=== PATIENT | male | born 1960 | race Caucasian/White ===

== ENCOUNTER 2021-07-08 10:39 | Inpatient (IN) | payer BC ==
--- OUTSIDE RECORDS SUMMARY | 2021-07-08 10:42 | XMS REPORT | Continuity of Care Document ---
:1960 Author Organization [facility] t Address [address] [place] [address] Care Team Providers Name Role Phone Dianne Primary Care Physician DELVIN Attending Clinician Unavailable DELVIN Attending Clinician Unavailable DAVID Attending Clinician Unavailable KALIN CHOPRA Attending Clinician Unavailable David JENNINGS Attending Clinician DELVIN Attending Clinician Unavailable DALIA Attending Clinician Unavailable LIZ Attending Clinician Unavailable LILIANE Attending Clinician Unavailable Payers Payer Name Policy Type Policy Number Effective Date Expiration Date Rigoberto cabrera [facility] [id number] 2018 2018 00:00:00 CHOICE/CHOICE 00:00:00 PLUS BCBSTX PPO [id number] 2020 2024 00:00:00 00:00:00 Problems Condition Condition Condition Status Onset Resolution Last Treating Co mments Source Name Details Category Date Date Treatment Clinician Date History of History of Problem Resolve [place] Diabetes Diabetes d Physic i mellitus, mellitus, ans type 2 type 2 History of History of Problem Resolve UT malignant malignant d Phys ici neoplasm neoplasm ans of bladder of bladder UTI UTI Problem Active UT symptoms symptoms Physic i ans UTI UTI Problem Active UT (urinary (urinary Physic i tract tract ans infection) infection) Pre-op Pre-op Problem Active UT testing testing Physici ans Bladder Bladder Problem Active [facility] cancer cancer Physici ans Postoperat Postoperat Problem Active U T patrick visit patrick visit Phys ici ans Pancreatic Pancreatic Problem Active U T mass mass Physici ans Allergies, Adverse Reactions, Alerts This patient has no known allergies or adverse reactions. Social History Social Habit Start Date Stop Date Quantity Comments Source Sex Assigned At [birth year] [facility] 00:00:00 00:00:00 Smoking Status Start Date Stop Date Source Tobacco smoking consumption unknown [facility] Medications Ordered Filled Start Stop Current Ordering Indication Dosage Frequency Signature Comments Components Source Medication Medication Date Date Medication? Clinician (SIG) Name Name metFORMIN metFORMIN 2016-02 Yes [facility] HCl ER 500 HCl ER 500 0-31 Phy sici MG Oral MG Oral 00:00: ans Tablet Tablet 00 Extended Extended Release 24 Release 24 Hour Hour traZODone traZODone 2016-02 Yes UT HCl - 300 HCl - 300 0-31 Physi ci MG Oral MG Oral 00:00: ans Tablet Tablet 00 Melatonin 3 Melatonin 3 2016-02 Yes UT MG Oral MG Oral 0-31 Physici Tablet Tablet 00:00: ans 00 Vital Signs Vital Name Observation Time Observation Value Comments Source Body height 2021-01-21 17:38:33 180.3 cm [facility] weight 2021-01-21 17:38:33 99.7 kg [facility] BMI 2021-01-21 17:38:33 30.67 kg/m2 [facility] Body height 2020-11-26 16:21:31 180.3 cm [facility] weight 2020-11-26 16:21:31 102.6 kg [facility] BMI 2020-11-26 16:21:31 31.56 kg/m2 [facility] Body height 2020-07-09 17:22:07 180.3 cm [facility] Body weight 2020-07-09 17:22:07 102.3 kg [facility] BMI 2020-07-09 17:22:07 31.47 kg/m2 [facility] BP Systolic 2018-03-16 13:50:00 136 mm[Hg] Location: [facility]; [facility] Position: Sitting BP Diastolic 2018-03-16 13:50:00 88 mm[Hg] Location: [place]; [facility] Position: Sitting Height 2018-03-16 13:50:00 71 [in_us] [facility] Weight 2018-03-16 13:50:00 232 [lb_av] [facility] Body Mass Index 2018-03-16 13:50:00 32.36 kg/m2 [facility] Calculated Temperature 2018-03-16 13:50:00 98.6 [degF] Method: [facility] Temporal Heart Rate 2018-03-16 13:50:00 90 /min [facility] BP Systolic 2018-01-19 13:33:00 159 mm[Hg] Location: [facility]; [facility] Position: Sitting BP Diastolic 2018-01-19 13:33:00 94 mm[Hg] Location: [facility]; [facility] Position: Sitting Height 2018-01-19 13:33:00 71 [in_us] [facility] Weight 2018-01-19 13:33:00 242 [lb_av] [facility] Body Mass Index 2018-01-19 13:33:00 33.75 kg/m2 [facility] Calculated Temperature 2018-01-19 13:33:00 98.1 [degF] Method: [facility] Temporal Heart Rate 2018-01-19 13:33:00 81 /min [facility] BP Systolic 2017-09-15 14:08:00 150 mm[Hg] Location: [facility]; [facility] Position: Sitting BP Diastolic 2017-09-15 14:08:00 93 mm[Hg] Location: [facility]; [facility] Position: Sitting Height 2017-09-15 14:08:00 71 [in_us] [facility] Weight 2017-09-15 14:08:00 250 [lb_av] [facility] Body Mass Index 2017-09-15 14:08:00 34.87 kg/m2 [facility] Calculated Temperature 2017-09-15 14:08:00 98.8 [degF] Method: [facility] Temporal Heart Rate 2017-09-15 14:08:00 75 /min [facility] BP Systolic 2017-05-12 10:06:00 153 mm[Hg] Location: [facility]; [facility] Position: Sitting BP Diastolic 2017-05-12 10:06:00 99 mm[Hg] Location: [facility]; [facility] Position: Sitting Height 2017-05-12 10:06:00 71 [in_us] [facility] Weight 2017-05-12 10:06:00 245 [lb_av] [facility] Body Mass Index 2017-05-12 10:06:00 34.17 kg/m2 [facility] Calculated Temperature 2017-05-12 10:06:00 97.8 [degF] Method: [facility] Temporal Heart Rate 2017-05-12 10:06:00 76 /min [facility] BP Systolic 2017-01-20 09:24:00 138 mm[Hg] Position: [facility] Sitting BP Diastolic 2017-01-20 09:24:00 90 mm[Hg] Position: [facility] Sitting Height 2017-01-20 09:24:00 71 [in_us] [facility] Weight 2017-01-20 09:24:00 245 [lb_av] [facility] Body Mass Index 2017-01-20 09:24:00 34.17 kg/m2 [facility] Calculated Temperature 2017-01-20 09:24:00 97.5 [degF] Method: Oral [facility] Heart Rate 2017-01-20 09:24:00 104 /min [facility] Procedures Procedure Date / Time Performed Performing Clinician [facility] e CT ABDOMEN PELVIS W CONTRAST 2020-10-01 16:04:55 [facility]vin[facility] CHEST W CONTRAST 2020-10-01 16:04:44 [facility] 2018-03-16 00:00:00 [facility] contrast [id number] [[facility]] CULTURE, URINE, 2018-02-19 00:00:00 [facility] ROUTINE [Q] BLADDER CANCER, FISH 2018-01-19 00:00:00 [facility] [Q] CYTOLOGY, NON-PROGRAM MANAGEMENT ANALYST 2017-05-12 00:00:00 [facility] History of Vasectomy [facility] Encounters Start End Encounter Admission Attending Care Care Encounter Source Date/Time Date/Time Type Type Clinicians Facility Department ID 2021-06-25 Outpatient [facility] [id number] [place] 10:17:53 [id number] [facility] 2021-06-24 Outpatient [facility] [id number] [place] 11:54:33 [id number] [facility] 2021-06-17 Outpatient DELVIN, PUTAO [facility] [id number] [place] 01:03:23 [id number] [facility] 2021-06-11 Outpatient [facility] [id number] [place] 07:00:32 [id number] [facility] 2021-05-13 Outpatient [facility] [id number] [place] 10:04:29 [id number] [facility] 2020-10-05 Outpatient DELVIN, PUTAO [facility] [id number] [place] 01:05:36 [facility] 2019-09-22 Outpatient DELVIN, P[facility]AO [facility] [id number] [facility] 10:45:51 2021-05-30 2021-06-28 Outpatient LAVENRBAUGH, [facility] [id number] [facility] 13:11:00 23:59:00 CASSIDY 2021-06-27 2021-06-27 Outpatient KEYSHA, [facility] [id number] [facility] 09:10:00 09:10:00 MARIAJOSE 2021-05-15 2021-06-13 Outpatient DELVIN, PUTAO [facility] [id number] [facility] 10:15:00 23:59:00 2021-05-21 2021-05-21 Telephone David, UTP 6400 [id number] [place] 00:00:00 00:00:00 Cassidy LAURA [id number] Health [id number] 2021-03-18 2021-04-16 Outpatient DELVIN, P[facility]AO [facility] [id number] [facility] 10:24:00 23:59:00 2021-04-10 2021-04-10 Outpatient DELVIN, PUTAO [facility] [id number] [facility] 07:58:00 17:45:00 2021-01-21 2021-02-15 Outpatient DELVIN, PUTAO [facility] [id number] [facility] 11:26:00 18:00:00 2021-01-18 2021-01-18 EXT MHH OP Delvin, Putao EXT MSRDP [id number] [place] 00:00:00 00:00:00 LOCATION [id number] H ealth [id number] [id number] 2020-11-26 2020-11-26 Outpatient DELVIN, PUTAO [facility] [id number] [facility] 10:57:00 10:57:00 2020-11-23 2020-11-23 EXT MHH OP Delvin, Putao EXT MSRDP [id number] [place] 00:00:00 00:00:00 LOCATION [id number] H ealth [id number] [id number] 2020-10-01 2020-10-30 Outpatient DELVIN, PUTAO [facility] [id number] [facility] 11:23:00 23:59:00 2020-09-28 2020-09-28 EXT MHH OP EXT MSRDP [id number] [place] 00:00:00 00:00:00 LOCATION [id number] H ealth [id number] [id number] 2020-07-09 2020-08-07 Outpatient DELVIN, PUTAO [facility] [id number] [facility] 12:05:00 23:59:00 2020-07-09 2020-07-09 EXT MHH OP Delvin, Putao EXT MSRDP [id number] [place] 00:00:00 00:00:00 LOCATION [id number] H ealth [id number] [id number] 2020-04-16 2020-05-15 Outpatient DELVIN, PUTAO [facility] [id number] [facility] 11:53:00 23:59:00 2020-01-17 2020-02-15 Outpatient DELVIN, PUTAO [facility] [id number] [facility] 10:36:00 23:59:00 2019-07-06 2019-07-06 Outpatient DELVIN, P[facility]AO [facility] [id number] [facility] 10:36:00 10:36:00 2019-06-08 2019-06-08 AppointMIRANDA Silver UTP UTP [id number] [place] 10:45:00 10:45:00 t; Amber HARGROVE i, ans M.D. 2019-04-14 2019-04-14 Outpatient MIRANDA HARGROVE [facility] MHH [id number] [facility] 10:29:00 10:29:00 2019-02-17 2019-02-17 Appointmen DELVIN PUTRADHA, UTP UTP [id number] [place] 11:00:00 11:00:00 t; Amber HARGROVE Physic i kian JEAN M.D. 2019-02-17 2019-02-17 Outpatient MHH [facility] [id number] [facility] 09:20:00 09:20:00 2019-02-03 2019-02-03 Outpatient M[facility]H [facility] [id number] [facility] 09:58:00 09:58:00 2019-01-20 2019-01-20 Appointmen DELVIN PUTRADHA, UTP UTP [id number] [place] 11:30:00 11:30:00 t; Amber HARGROVE i kian JEAN M.D. 2019-01-06 2019-01-06 Appointmen DELVIN PUTRADHA, UTP UTP [id number] [place] 09:20:00 09:20:00 t; Amber HARGROVE Physic i PUTkian GARCIA M.D. 2018-12-23 2018-12-23 Appointmen DELVIN PUTRADHA, UTP UTP [id number] [place] 10:30:00 10:30:00 t; Amber HARGROVE i kian JEAN M.D. 2018-12-23 2018-12-23 Outpatient MH ISABELA [id number] [facility] 09:50:00 09:50:00 2018-12-09 2018-12-09 Appointmen DELVIN PUTAO, UTP UTP [id number] [place] 10:45:00 10:45:00 t; Amber HARGROVE Physic i PUTkian GARCIA M.D. 2018-12-02 2018-12-02 Appointmen DELVIN PUTAO, UTP UTP [id number] [place] 11:00:00 11:00:00 t; Amber HARGROVE Physic i PUTkian GARCIA M.D. 2018-11-11 2018-11-11 Appointmen DELVIN PUTRADHA, UTP UTP [id number] [place] 12:30:00 12:30:00 t; Amber HARGROVE Physic i PUTkian GARCIA M.D. 2018-11-11 2018-11-11 Outpatient [facility] [id number] [facility] 10:13:00 10:13:00 2018-09-30 2018-09-30 Outpatient [facility] [id number] [facility] 10:29:00 10:29:00 2018-09-30 2018-09-30 Appointmen DELVIN PUTRADHA, UTP UTP [id number] [place] 09:00:00 09:00:00 t; Amber HARGROVE i, ans M.D. 2018-09-17 2018-09-17 Appointmen DALIA, UTP UTP [id number] [place] 07:30:00 07:30:00 t; MICHELLE GÓMEZ Physi ci CURTIS, M.D. ans M.D. 2018-09-17 2018-09-17 Inpatient U [facility] ISABELA [id number] [facility] 14:53:00 05:39:00 2018-08-26 2018-08-26 Appointmen DELVIN PUTRADHA, UTP UTP [id number] [place] 11:00:00 11:00:00 t; Amber HARGROVE i, ans M.D. 2018-08-23 2018-08-23 Appointmen DELVIN, PUTAO, UTP UTP [id number] [place] 11:45:00 11:45:00 t; Amber HARGROVE i, ans M.D. 2018-08-12 2018-08-12 Appointmen DELVIN PUTRADHA, UTP UTP [id number] [place] 11:30:00 11:30:00 t; Amber HARGROVE i, ans M.D. 2018-08-12 2018-08-12 Outpatient [facility] [id number] [facility] 08:56:00 08:56:00 2018-08-05 2018-08-05 Appointmen DELVIN, PUTAO, UTP UTP [id number] [place] 11:00:00 11:00:00 t; Amber HARGROVE i, ans M.D. 2018-07-29 2018-07-29 Appointmen DELVIN PUTAO, UTP UTP [id number] [place] 13:00:00 13:00:00 t; Amber HARGROVE i, ans M.D. 2018-07-15 2018-07-15 Appointmen DELVIN, PUTAO, UTP UTP [id number] [place] 09:45:00 09:45:00 t; Amber HARGROVE Physic i PUTkian GARCIA M.D. 2018-07-08 2018-07-08 Appointmen DELVIN, PUTAO, UTP UTP [id number] [place] 09:45:00 09:45:00 t; Amber HARGROVE Physic i PUTkian GARCIA M.D. 2018-07-08 2018-07-08 Outpatient [facility] [id number] [facility] 09:16:00 09:16:00 2018-07-01 2018-07-01 Appointmen DELVIN, PUTAO, UTP UTP [id number] [place] 11:00:00 11:00:00 t; Amber HARGROVE Physic i PUTkian GARCIA M.D. 2018-06-24 2018-06-24 Appointmen DELVIN, PUTAO, UTP UTP [id number] [place] 11:00:00 11:00:00 t; Amber HARGROVE Physic i PUTkian GARCIA M.D. 2018-06-17 2018-06-17 Appointmen DELVIN, PUTAO, UTP UTP [id number] [place] 10:30:00 10:30:00 t; Amber HARGROVE Physic i PUTkian GARCIA M.D. 2018-06-10 2018-06-10 Appointmen DELVIN, PUTAO, UTP UTP [id number] [place] 14:45:00 14:45:00 t; Amber HARGROVE Physic i PUTkian GARCIA M.D. 2018-06-03 2018-06-03 Appointmen DELVIN, PUTAO, UTP UTP [id number] [place] 11:00:00 11:00:00 t; Amber HARGROVE Physic i PUTkian GARCIA M.D. 2018-06-03 2018-06-03 Outpatient [facility] [id number] [facility] 08:37:00 08:37:00 2018-05-20 2018-05-20 Appointmen DELVIN, PUTAO, UTP UTP [id number] [place] 14:00:00 14:00:00 t; Amber HARGROVE Physic i PUTkian GARCIA M.D. 2018-05-06 2018-05-06 Appointmen DELVIN, PUTAO, UTP UTP [id number] [place] 10:00:00 10:00:00 t; Amber HARGROVE Physic i PUTkian GARCIA M.D. 2018-04-29 2018-04-29 Appointmen MIRANDA HARGROVE, [facility] [id number] [place] 11:00:00 11:00:00 t; Amber HARGROVE Physic i PUTAOkian M.D. 2018-04-29 2018-04-29 Appointmen MHH, GASTRO [facility] [id number] [place] 08:00:00 08:00:00 t; MHH, Physic i GASTRO ans 2018-03-16 2018-03-[facility] [id number] [place] 14:00:00 14:00:00 t; Kaitlin COHN M.D. ans STEVEN, M.D. 2018-02-24 2018-02-24 [facility] [id number] [place] 09:00:00 09:00:00 t; Skyler COHN i, M.D. ans STEVEN, M.D. 2018-01-19 2018-01-19 [facility] [id number] [place] 13:00:00 13:00:00 t; Kaitlin COHN M.D. ans STEVEN, M.D. 2017-09-15 2017-09-15 [facility] [id number] [place] 14:00:00 14:00:00 t; Kaitlin COHN M.D. ans STEVEN, M.D. 2017-08-11 2017-08-11 [facility] [id number] [place] 10:00:00 10:00:00 t; Skyler COHN i, M.D. ans STEVEN, M.D. 2017-05-12 2017-05-12 [facility] [id number] [place] 10:00:00 10:00:00 t; Kaitlin COHN M.D. ans STEVEN, M.D. 2017-01-20 2017-01-20 [facility] [id number] [place] 09:15:00 09:15:00 t; LALIT, Amber Flores i, M.D. 2016-12-16 2016-12-16 Appointmen OWEN MOMIN UTP [id number] [place] 13:00:00 13:00:00 Skyler Elizabeth i, M.D. ans STEVEN, M.D. Results Test Test Test Results Result Source Description Time Comments Comments CT 2019-05 EXAM: CT ABDOMEN AND PELVIS [place] Abdomen/Pelvis -13 WITH CONTRASTDATE: 05/30/2019 Physicians w contrast 11:30:0 11:32 AM CDTINDICATION: - [id number] C25.2 Malignant neoplasm of tail of pancreasADDITIONAL INFORMATION: None.COMPARISON: History of bladder cancer. Pancreatic tail adenocarcinoma, statuspost distal pancreatectomy and splenectomy in 2019.TECHNIQUE: Volumetric CT acquisition of the abdomen and pelvis after theintravenous administration contrast. Axial, coronal and sagittalreconstructions.Postco ntrast phases: Venous.IV contrast: 100 cc of Omnipaque 350Oral contrast: None.DLP: 1550.6 mGy*cmFINDINGS: Lines and tubes: None.Lower thorax: No pleural effusions. No pericardial effusion. No obvious lungnodules at the bases.Liver: Normal. Stable hepatic segment 7 subcentimeter hypodensity.Biliary tree: No intra- or extrahepatic biliary ductal dilation.Gallbladder: Gallbladder is unremarkable.Pancreas: Status post distal pancreatectomy with expected postsurgical changes.No obvious recurrent soft tissue in the surgical bed.Spleen: Status post splenectomy.Adrenals: Normal. No adrenal nodules.Kidneys and ureters: Normal. No obvious focal lesions. No nephrolithiasis. Nohydronephrosis. No ureteral dilations. Both kidneys are normally enhancing withprompt excretion.Urinary bladder: Urinary bladder is mildly distended with diffuse wallthickening. Given the inadequate distention, evaluation is limited.Prostate and seminal vesicles: Prostate and seminal vesicles are unremarkable.Stomach: Stomach is well distended. There is small hiatal hernia.Duodenum: Duodenum is unremarkable without wall thickening. No duodenaldiverticula seen.Small bowel: No small bowel dilation. No small bowel wall thickening. Terminalileum is visualized and is unremarkable.Appendix: Normal appendix.Colon: Diverticulosis of left colon without diverticulitis.Peritoneum: No ascites or free air. No fluid collections.Lymph nodes: No enlarged retroperitoneal or pelvic or mesenteric lymph nodes byCT size criteria.Abdominal aorta: Abdominal aorta is patent without aneurysmal dilation.Iliac arteries: Iliac arteries are patent without dilation.IVC and iliac veins: IVC and iliac veins are patent.Bones: No suspicious lytic or blastic lesions seen in the bones.Abdominal wall: No obvious ventral hernias.Soft tissues: No obvious focal masses or fluid collections.IMPRESSION: 1. Status post distal pancreectomy and splenectomy. No recurrent soft tissuemass in the surgical bed.2. No metastatic disease in the abdomen and pelvis otherwise.3. Diffuse mild bladder wall thickening given for inadequate distention.RECOMMENDATIONS: None.--Read by: Will PlummerDictated Date/time: 05/30/19 12:04Electronically Signed by: Will Plummer 05/30/2011:14FINAL REPORT CT Chest w 2019-02 EXAM: [place] contrast [id number] CONTRASTDATE: 03/04/2019 11:14 Physicians 11:45:0 CSTINDICATION: 59-year-old man 0 with pancreatic cancerTECHNIQUE: Volumetric CT acquisition of the chest, following intravenouscontrast. Axial, sagittal and coronal reconstructions. MIP images wereperformed.IV Contrast: 100 mL of Omnipaque 350.DLP: 1733 mGy-cmCOMPARISON: CT chest from 10/09/2016FINDINGS: Lower Neck: The visible portions or the lower neck and thyroid areunremarkable.Heart, mediastinum and great Vessels: Right Port-A-Cath in the SVC. Heart sizeis normal and there is no pericardial effusion. Measurements the pulmonarytrunk and thoracic aorta within normal limits. Aortic root, thoracic aortic andthree-vessel coronary artery calcifications. No intrathoracic lymphadenopathyby pathologic CT size criteria.Trachea, Lungs and Pleura: Trachea and central bronchi are patent. Nopathologic pulmonary nodules or acute airspace disease. Calcified granulomaright middle lobe. Right middle lobe and lingular subsegmental atelectasis. Nopleural effusion or pneumothorax.Bones and Soft Tissues: Mild thoracic spine spondylosis. No aggressive skeletallesions.Upper abdomen: Please refer to CT abdomen from the same day for dedicatedinfradiaphragmatic findings.IMPRESSION:1. No definite CT evidence of intrathoracic metastatic disease.2. Aortic root, thoracic aortic and three-vessel coronary arterycalcifications.3. Please refer to CT abdomen from the same day for dedicatedinfradiaphragmatic findings.--Read by: José Manuel Solomon MDDictated Date/time: 03/04/19 12:56Electronically Signed by: José Manuel Solomon 03/04/2012:47FINAL REPORT CT 2019-02 EXAM: CT ABDOMEN AND PELVIS [place] Abdomen/Pelvis -17 WITH CONTRASTDATE: 03/04/2019 Physicians w contrast 11:45:0 11:14 CSTINDICATION: - C25.2 [id number] Malignant neoplasm of tail of pancreasADDITIONAL INFORMATION: History of bladder cancer.. Status post distalpancreatectomy and splenectomy 2018.COMPARISON: 11/10/2018 and 10/14/2018.TECHNIQUE: Volumetric CT acquisition of the abdomen and pelvis after theintravenous administration contrast. Axial, coronal and sagittalreconstructions.Postco ntrast phases: VenousIV contrast: 100 mL Omnipaque 350Enteric contrast: 4 50 mL VolumenDLP: 1733.63 mGy-cm including chestFINDINGS: Lines, tubes and hardware: None. Previously seen left upper quadrant drain isremoved.Lower thorax: For details of the lower thorax, please refer to CT scan of thechest performed the same day but reported separately.Liver: Small enhancing focus is seen in segment 8 of the liver (series 5 image18) measuring approximately 7 mm. This is been seen on the prior exams andlikely represents a small hemangioma or arterial portal shunt. No other focalliver lesion is seen.Biliary tree: No biliary dilatation is seen.Gallbladder: Normal. No CT evidence of gallstones.Pancreas: Patient status post a distal pancreatectomy. The previously seenfluid collection at the surgical site is resolved. There is linear densitiesseen surrounding sutures or calcifications but no definite soft tissue nodule.Linear densities demonstrates some tethering towards the stomach.Spleen: Surgically absent. The previously seen fluid collection within thesplenectomy bed is resolved. Some ill-defined fluid or soft tissue stranding isseen in the left upper quadrant along the diaphragm, likely postsurgicalchanges.Adrenals: Normal.Kidneys and ureters: Normal.Bladder: Normal.Reproductive organs: Prostate and seminal vesicles are unremarkable.Gastrointestinal tract: Normal caliber. Diverticulosis without diverticulitis.Appendix: Normal.Peritoneum, mesentery and retroperitoneum: No free air, ascites or loculatedfluid.Lymph nodes: A node is seen anterior to the common hepatic artery (series 5image 26) which is stable from prior. A few other subcentimeter lymph nodes areseen in the peripancreatic region and isauro hepatis as well as the midabdominal mesentery.Vasculature: Normal.Bones: No acute abnormality. Unchanged sclerosis of the femoral heads.Soft tissues: Normal.IMPRESSION: 1. Interval resolution of the fluid collection within the surgical bed aroundthe pancreatic tail. There is some linear soft tissue density extending to thesurrounding structures not to represent scarring. No focal nodule is seen atthis time to suggest recurrent disease.2. Fluid collection in the splenectomy bed is also resolved. Some mildill-defined soft tissue stranding/fluid seen in the left upper quadrant.3. Unchanged small focus of arterial enhancement in the liver thought torepresent a small hemangioma or arterial portal shunt.4. No detrimental interval change noted.--Read by: Jossy Fajardo MDDictated Date/time: 03/04/19 15:22Electronically Signed by: Jossy Fajardo MD 03/07/2022:32FINAL REPORT CT 2018-03 Study: Abdomen/Pelvis w/wo IV [place] Abdomen/Pelvis -22 contrast CTClinical P hysicians w/wo contrast 10:50:0 Indication: - bladder [id number] cancerComparison: CT of the abdomen and pelvis from 10/09/2016TECHNIQUE: Multiple axial CT images of the abdomen and pelvis were acquiredbefore and after the administration of intravenous contrast. Sagittal andcoronal reformatted images were performed.CT Radiation Dose DLP 1842.22 mGy-cmFINDINGS: Limited views of the lung bases show a calcified granuloma in theright middle lobe.Multiple calcified hepatic and splenic granulomas are seen. Gallbladder,adrenal glands, and kidneys are unremarkable. No hydronephrosis or perinephricstranding is seen. No renal or ureteral stones are noted. No filling defectsare noted throughout the opacified portions of the renal collecting systems,ureters, or bladder on the delayed excretory phase images. Previously notedintraluminal mass in the urinary bladder is no longer seen on the current exam.Mild wall thickening of the urinary bladder is seen. Prostate is unremarkable.There is a lobulated, heterogeneously enhancing 3.1 x 3.6 x 2.6 cm mass in thepancreatic tail. This is new since prior exam from 10/09/2016. No splenic veinthrombosis is seen. No splenic arterial aneurysm is noted. There is nopancreatic ductal dilatation. No intrahepatic or extrahepatic biliary ductdilatation is seen. Multiple colonic diverticula are seen without inflammatory change to suggestacute diverticulitis. Appendix is unremarkable. No free air, free fluid, orpathologic adenopathy is seen. Arterial calcifications are noted. Thesuperficial soft tissues are unremarkable. No suspicious osseous lesions areseen.IMPRESSION:1. Mild wall thickening of the urinary bladder, nonspecific. Previously notedintraluminal mass within the urinary bladder has resolved since prior exam from10/09/2016.2. No focal renal lesion.3. Interval development of a lobulated 3.1 x 3.6 x 2.6 cm mass in thepancreatic tail. This is highly suspicious for malignancy.SL: [id number] by: Willie Searsictated Date/time: 04/09/18 13:38Electronically Signed by: Willie Sears MD 04/09/1912:47FINAL REPORT [Q] CYTOLOGY, NON-PROGRAM MANAGEMENT ANALYST 2017-09-16 11:00:00 Test Item Value Reference Range Interpretation Comme nts CLINICAL INFORMATION (test code = See Comment N Bladder cancer CLINICAL INFORMATION) SCREENER (test code = SCREENER) See Comment N PMT, CT(ASCP)CT screening location: [address], [place] [id number] PATHOLOGIST (test code = See Comment N Kirk Conte MD,Board PATHOLOGIST) Certified in An atomic [id number] [phone] (electronic sig nature) [facility][Q] NON-PROGRAM MANAGEMENT ANALYST, SPECIMEN [id number] 11:00:00 Test Item Value Reference Range Interpretation Comments Source (test code = See Comment N Urine Source) Gross Description See Comment 50 ml of c lear yellow (test code = Gross fluid, 1 ThinPrep. Description) Verified as to patient ID/name Tomasz ss exam(s) perform ed at: [place] [phone] Laboratory Dire ctor: PATRICIA ROBERT MD A DIAGNOSIS (test See Comment Atypical u rothelial code = A DIAGNOSIS) cells ar e present (see microscopic description). MICROSCOPIC DESCRIPTION:One ThinPrep is exa mined. This slide show s some atypical urothe lial cells, mainly occurring in sm all clusters. The c ells show a somewhat increased N:C r atio, and hyperchroma tic nuclei. However , little nuclear pleomorphism is observed. NO COLLECTION DATE RECEIVED. WE CAMACHO VE USEDTHE DATE E SPECIMEN WAS RE CEIVED BY FELIBERTO KENNEDY THE COLLECTION DATE. IF THISIS INCOR RECT, PLEASE CONTACT CLIENT SERVICES.PHONE NUMBER: [phone] [facility]
[2021-07-08] MEDS ORDERED: NA CHLORIDE 0.9% 1,000 ML ONE (11:07)
[2021-07-08] MEDS ORDERED: ONDANSETRON 4 MG/2 ML VIAL ONE (11:07)
[2021-07-08] MEDS ORDERED: DICYCLOMINE HCL 20 MG/2 ML AMP IM ONE (11:20)
[2021-07-08 11:35] LABS: Hematocrit 37.4 % (39.6-49.0); MPV 9.4 fL (7.6-11.3); RBC Red Blood Cell Count 4.47 M/uL (4.33-5.43)
[2021-07-08 11:36] LABS: Albumin 2.1 g/dL (3.4-5.0); Bilirubin Total 1.2 mg/dL (0.2-1.0); Potassium 3.2 mmol/L (3.5-5.1); Protein, Total 6.3 g/dL (6.4-8.2)
[2021-07-08 12:29] LABS: Urine Blood 2+ (Negative); Urine Glucose 2+ (Negative); Urine Protein 2+ (Negative); Urine pH 5.5 (5.0-7.0)
--- NOTE | 2021-07-08 12:45 | RAD REPORT ---
EXAM DESCRIPTION: CT - Abdomen Pelvis Wo Contrast - 07/08/2021 12:30 pm CLINICAL HISTORY: Abdominal pain, acute, nonlocalized History of lung and pancreatic malignancies, history of radiation therapy COMPARISON: No comparisons TECHNIQUE: Axial [address] imaging of the abdomen and pelvis was performed without IV contrast. No IV contrast was given because of allergy, abnormal renal function, patient refusal or physician re quest. No oral contrast administered. All CT scans are performed using dose optimization technique as appropriate and may include automated exposure control or mA/KV adjustment according to patient size. FINDINGS: Patchy airspace opacification is present in the posterior gutter on the right. This appear ance is favored to be a small focal pneumonia. In the lateral lower right lung field (image 6/112) th ere is a 12 millimeter noncalcified nodule. This is nonspecific. Focal scarring is possible. Infiltra te is not suspected. Neoplastic etiology cannot be excluded given history. No prior imaging of compar miley. Fleischner Society 2017 criteria would recommend follow-up CT study in 3 months. However, lung castellanos are only partially visualized. Patient may have additional nodules, a larger nodule or a remna nt primary mass. No focal abnormality seen in a normal size liver on noncontrast imaging. No gallbladder or biliary tr ee abnormality seen. Pancreatic tail and portions of the pancreatic body have been resected. Spleen h as been resected. No suspicion for recurrent mass. No hydronephrosis or suspicious renal mass. No significant adrenal finding. Isodense renal masses an d pyelonephritis cannot be excluded in the absence of IV contrast. The urinary bladder is without sig nificant finding. No gastric dilatation or wall thickening. No acute small bowel finding identifiable. The appendix is normal. Patient cecum is in the right mid abdomen with the retrocecal appendix extending superiorly t owards the gallbladder fossa. Cecum to mid descending colon shows no acute finding. There is a long 1 5 centimeter segment of distal descending colon to the mid sigmoid colon showing circumferential wall thickening. There is stranding in the adjacent fat. Patient has a few diverticula. Diverticulitis wo uld be most likely. Nonspecific colitis is possible. Long segment malignancy is not common but not en tirely excluded. Newsome of the distal rectum near the anus are prominent though CT imaging is limited in accuracy of assessment at that location. No free air, free fluid or inflammatory stranding. No hernia, mass or bulky lymphadenopathy. No suspicious bony findings. IMPRESSION: Long segment circumferential wall thickening involving the distal descending colon to th e mid sigmoid colon approximately 15 cm. Stranding is seen in the adjacent fat. No extraluminal air, abscess or other complicating factor. Diverticulitis is the most likely etiology. Patient has diverticulosis. Malignancy is generally not o f this length but is not entirely excluded. Patchy airspace opacification in the posterior gutter on the right possibly a small pneumonia. A 12 mm lateral lower right lung field nodule is present. Provided history indicates a lung cancer hi story. Correlation can be made with prior outside imaging to determine this is stable or new nodule. Splenectomy and partial pancreatectomy with no evidence for residual or recurrent mass. Full assessment is limited is the absence of IV contrast.
[2021-07-08] MEDS ORDERED: PIPERACIL/TAZO 3.375 GM VIAL IV ONE (14:07)
[2021-07-08] MEDS ORDERED: NA CHLORIDE 0.9% 100 ML IV ONE (14:07)
[2021-07-08] MEDS ORDERED: METRONIDAZOLE 500mg IVPB 500 MG/100 ML BAG IV ONE (14:08)
--- NOTE | 2021-07-08 14:12 | EDPHYS ---
Physician Documentation [facility] Name: Austen Patterson Age: 61 yrs Sex: Male : 1960 Arrival Date: 07/08/2021 Time: 10:40 Bed 20 Private MD: Kaiden Dean ED Physician Dominick Earl HPI: 07/08 10:54 This 61 yrs old Male presents to ER via Wheelchair with complaints of dehydration, jmm Diarrhea. 10:54 The patient presents to the emergency department with nausea, diarrhea. Onset: The jmm symptoms/episode began/occurred gradually, 1 week(s) ago. Possible causes: unknown. The symptoms are aggravated by nothing. The symptoms are alleviated by nothing. Associated signs and symptoms: Pertinent negatives: abdominal pain, fever. The patient has not experienced similar symptoms in the past. Historical: - Allergies: 10:44 No Known Allergies; jd3 - PMHx: 10:44 Diabetes - NIDDM; Hypertension; lung cancer; tramatic brain injury; pancriatic cancer; jd3 - PSHx: 10:44 pancriatic surgery; jd3 - Immunization history:: Adult Immunizations up to date, Client reports receiving the 2nd dose of the Covid vaccine. - Social history:: Smoking status: Reported history of juuling and/or vaping. ROS: 10:54 Constitutional: Positive for body aches, fatigue. jmm 10:54 Respiratory: Positive for Negative for cough, shortness of breath. 10:54 Abdomen/GI: Positive for diarrhea. 10:54 All other systems are negative. Exam: 10:54 Constitutional: This is a well developed, well nourished patient who is awake, alert, jmm and in no acute distress. Head/Face: atraumatic. Eyes: EOMI, no conjunctival erythema appreciated ENT: Moist Mucus Membranes Neck: Trachea midline, Supple Chest/axilla: Normal chest wall appearance and motion. Cardiovascular: Regular rate and rhythm. No edema appreciated Respiratory: Normal respirations, no respiratory distress appreciated Abdomen/GI: Non distended, soft Back: Normal ROM Skin: General appearance color normal MS/ Extremity: Moves all extremities, no obvious deformities appreciated, no edema noted to the lower extremities Neuro: Awake and alert Psych: Behavior is normal, Mood is normal, Patient is cooperative and pleasant Vital Signs: 10:45 BP 117 / 75; Pulse 111; Resp 18 S; Temp 99.5(TE); Pulse Ox 98% on R/A; Weight 90.72 kg jd3 (R); Height 5 ft. 10 in. (177.80 cm) (R); Pain 8/10; 12:39 BP 146 / 92; Pulse 97; Pulse Ox 95% on R/A; ap3 13:11 BP 131 / 79; Pulse 93; Pulse Ox 98% on R/A; ap3 14:26 BP 132 / 91; Pulse 95; Pulse Ox 99% on R/A; ap3 15:25 BP 152 / 91; Pulse 98; Pulse Ox 98% ; ap3 16:30 BP 114 / 69; Pulse 98; Pulse Ox 97% on R/A; ap3 17:30 BP 141 / 86; Pulse 113; Pulse Ox 99% on R/A; ap3 18:16 BP 117 / 77; Pulse 89; Pulse Ox 98% on R/A; ap3 18:47 BP 113 / 85; Pulse 101; Pulse Ox 97% on R/A; ap3 10:45 Body Mass Index 28.70 (90.72 kg, 177.80 cm) jd3 MDM: 10:54 Patient medically screened. [facility] 14:10 Data reviewed: vital signs, nurses notes. Counseling: I had a detailed discussion with alfredo the patient and/or guardian regarding: the historical points, exam findings, and any diagnostic results supporting the discharge/admit diagnosis, lab results, the need for further work-up and treatment in the hospital. ED course: I discussed the patient with Dr. Parada whom accepted the patient to his service. 07/08 10:57 Order name: CBC with Diff [facility] 07/08 10:57 Order name: CMP; Complete Time: 11:50 [facility] 07/08 10:57 Order name: Lipase; Complete Time: 11:50 [facility] 07/08 12:05 Order name: Manual Differential [facility] 07/08 12:30 Order name: Urine Dipstick-Ancillary; Complete Time: 12:34 [facility] 07/08 13:39 Order name: SARS-COV-2 RT PCR (Document "Date of Onset" if Symptomatic); Complete Time: [facility] 15:57 07/08 16:10 Order name: Basic Metabolic Panel [facility] 07/08 16:10 Order name: Basic Metabolic Panel [facility] 07/08 16:10 Order name: CBC with Automated Diff [facility] 07/08 16:10 Order name: CBC with Automated Diff [facility] 07/08 16:10 Order name: Lipase [facility] 07/08 16:10 Order name: Lipase [facility] 07/08 16:10 Order name: Liver (Hepatic) Function [facility] 07/08 16:10 Order name: Liver (Hepatic) Function [facility] 07/08 10:57 Order name: IV Saline Lock; Complete Time: 11:21 [facility] 07/08 10:57 Order name: Labs collected and sent; Complete Time: 11:21 [facility] 07/08 10:57 Order name: Urine Dipstick-Ancillary (obtain specimen); Complete Time: 12:34 [facility] 07/08 11:52 Order name: CT Abd/Pelvis - Without Contrast; Complete Time: 12:46 [facility] 07/08 13:28 Order name: EKG - Nurse/Tech; Complete Time: 14:21 [facility] 07/08 16:10 Order name: NPO [facility] Administered Medications: 11:21 Drug: NS 0.9% 1000 ml Route: IV; Rate: 1 bolus; Site: right wrist; ap3 12:34 Follow up: IV Status: Completed infusion; IV Intake: 1000ml ap3 11:21 Not Given (Patient Refused): Zofran (Ondansetron) 4 mg IVP once; over 2 minutes ap3 11:40 Drug: Bentyl (dicyclomine) 20 mg Route: IM; Site: right gluteus; ap3 14:21 Follow up: Response: No adverse reaction ap3 14:21 Drug: Flagyl (metroNIDAZOLE) 500 mg Volume: 100 ml; Route: IVPB; Rate: 200 ml/hr; ap3 Infused Over: 30 mins; Site: right wrist; 15:04 Follow up: IV Status: Completed infusion ap3 15:04 Drug: Zosyn (piperacillin-tazobactam) 3.375 grams Route: IVPB; Infused Over: 60 mins; jh6 Site: right femoral; 15:37 Follow up: IV Status: Completed infusion ap3 Disposition: 19:04 Co-signature as Attending Physician, Dominick FERNANDES was immediately available on-site ms3 in the Emergency Department for consultation in the care of the patient.. Disposition Summary: 07/08/21 14:12 Hospitalization Ordered Hospitalization Status: Observation jmm Location: Telemetry/MedSurg (observation) jmm Condition: Stable jmm Problem: new jmm Symptoms: are unchanged jmm Bed/Room Type: Standard jmm Provider: Kaiden Dean(07/08/21 14:38) jmm Room Assignment: 401(07/08/21 20:10) mw Diagnosis - Dehydration jmm - Diarrhea jmm - Hyponatremia jmm - Acute Kidney Injury jmm - Hypokalemia jmm Forms: - Medication Reconciliation Form jmm - SBAR form jmm Signatures: Dispatcher [employer] EDMS Lorri Espinoza RN RN mw Florencio Landis PA PA jmm Davies, Jonathon RN RN derickd3 Dee Dee Pascual RN RN ap3 Dominick Earl DO DO ms3 Cherelle Mcdaniel RN RN jh6 Corrections: (The following items were deleted from the chart) 14:38 14:12 Nick Paradam m 19:45 14:12 jmm mw 20:10 19:45 405 mw mw
--- NOTE | 2021-07-08 14:12 | ER ---
Nurse's Notes [facility] Name: Austen Patterson Age: 61 yrs Sex: Male : 1960 Arrival Date: 07/08/2021 Time: 10:40 Bed 20 Private MD: Kaiden Dean Diagnosis: Dehydration;Diarrhea;Hyponatremia;Acute Kidney Injury;Hypokalemia Presentation: 07/08 10:43 Chief complaint: Patient states: "I have not been able to eat or drink in about a week. jd3 I am dehydrated and feeling very weak. I had a chemo treatment about a week ago.". Coronavirus screen: At this time, the client does not indicate any symptoms associated with coronavirus-19. Ebola Screen: No symptoms or risks identified at this time. Initial Sepsis Screen: Does the patient meet any 2 criteria? No. Patient's initial sepsis screen is negative. Does the patient have a suspected source of infection? No. Patient's initial sepsis screen is negative. Risk Assessment: Do you want to hurt yourself or someone else? Patient reports no desire to harm self or others. Onset of symptoms was July 08, 2021. 10:43 Method Of Arrival: Wheelchair jd3 10:43 Acuity: JAREK 3 jd3 Historical: - Allergies: 10:44 No Known Allergies; jd3 - PMHx: 10:44 Diabetes - NIDDM; Hypertension; lung cancer; tramatic brain injury; pancriatic cancer; jd3 - PSHx: 10:44 pancriatic surgery; jd3 - Immunization history:: Adult Immunizations up to date, Client reports receiving the 2nd dose of the Covid vaccine. - Social history:: Smoking status: Reported history of juuling and/or vaping. Screenin:20 Abuse screen: Denies threats or abuse. Nutritional screening: Has had N/V for 3 or more ap3 days. Tuberculosis screening: No symptoms or risk factors identified. Fall Risk Fall in past 12 months (25 points). Secondary diagnosis (15 points) IV access (20 points). Ambulatory Aid- None/Bed Rest/Nurse Assist (0 pts). Gait- Weak (10 pts.). Mental Status- Oriented to own ability (0 pts). Total Isaacs Fall Scale indicates High Risk Score (45 or more points). Fall prevention measures have been instituted. Side Rails Up X 2 Placed Close to Nursing Station Frequent Obs/Assessments Occuring Family Present and informed to notify staff if the need to leave the bedside. Assessment: 11:19 General: Appears in no apparent distress. comfortable, Behavior is calm, cooperative. ap3 General: Reports fatigue for. Pain: Denies pain. Neuro: Level of Consciousness is awake, alert, obeys commands, Oriented to person, place, time, situation. Cardiovascular: Patient's skin is warm and dry. Respiratory: Airway is patent Respiratory effort is even, unlabored. GI: Reports diarrhea. 12:35 Reassessment: Patient and/or family updated on plan of care and expected duration. Pain ap3 level reassessed. Patient is alert, oriented x 3, equal unlabored respirations, skin warm/dry/pink. 14:26 Reassessment: Patient and/or family updated on plan of care and expected duration. Pain ap3 level reassessed. Patient is alert, oriented x 3, equal unlabored respirations, skin warm/dry/pink. Patient states feeling better. Patient states symptoms have improved. 15:25 Reassessment: Patient and/or family updated on plan of care and expected duration. Pain ap3 level reassessed. Patient is alert, oriented x 3, equal unlabored respirations, skin warm/dry/pink. 17:00 Reassessment: No changes from previously documented assessment. Patient and/or family ap3 updated on plan of care and expected duration. Pain level reassessed. Patient is alert, oriented x 3, equal unlabored respirations, skin warm/dry/pink. 18:17 Reassessment: Patient and/or family updated on plan of care and expected duration. Pain ap3 level reassessed. Patient is alert, oriented x 3, equal unlabored respirations, skin warm/dry/pink. Patient states feeling better. Patient states symptoms have improved. 19:25 General: Appears in no apparent distress. Behavior is cooperative. Neuro: No deficits sm5 noted. Miller Agitation-Sedation Scale (RASS): 0 - Alert and Calm Level of Consciousness is awake, alert, obeys commands, Oriented to person, place, time, situation. Cardiovascular: No deficits noted. Capillary refill < 3 seconds Patient's skin is warm and dry. Respiratory: No deficits noted. Airway is patent Trachea midline Respiratory effort is even, unlabored. GI: Reports diarrhea. Vital Signs: 10:45 BP 117 / 75; Pulse 111; Resp 18 S; Temp 99.5(TE); Pulse Ox 98% on R/A; Weight 90.72 kg jd3 (R); Height 5 ft. 10 in. (177.80 cm) (R); Pain 8/10; 12:39 BP 146 / 92; Pulse 97; Pulse Ox 95% on R/A; ap3 13:11 BP 131 / 79; Pulse 93; Pulse Ox 98% on R/A; ap3 14:26 BP 132 / 91; Pulse 95; Pulse Ox 99% on R/A; ap3 15:25 BP 152 / 91; Pulse 98; Pulse Ox 98% ; ap3 16:30 BP 114 / 69; Pulse 98; Pulse Ox 97% on R/A; ap3 17:30 BP 141 / 86; Pulse 113; Pulse Ox 99% on R/A; ap3 18:16 BP 117 / 77; Pulse 89; Pulse Ox 98% on R/A; ap3 18:47 BP 113 / 85; Pulse 101; Pulse Ox 97% on R/A; ap3 10:45 Body Mass Index 28.70 (90.72 kg, 177.80 cm) jd3 ED Course: 10:40 Patient arrived in ED. am2 10:40 Kaiden Dean MD is Private Physician. am2 10:42 Florencio Landis PA is PHCP. jmm 10:42 Dominick Earl DO is Attending Physician. jmm 10:44 Triage completed. jd3 10:46 Arm band placed on. jd3 11:00 Dee Dee Pascual, TAE is Primary Nurse. ap3 11:19 Inserted saline lock: 22 gauge in right wrist, using aseptic technique. Blood collected.ap3 11:21 Patient has correct armband on for positive identification. Bed in low position. Call ap3 light in reach. Adult w/ patient. picker machine operator on. Pulse ox on. NIBP on. Door closed. Noise minimized. 12:[address] via wheelchair. ap3 12:32 CT Abd/Pelvis - Without Contrast In Process Unspecified. EDMS 12:[address]. ap3 14:11 Nick Parada MD is Hospitalizing Provider. jmm 14:26 EKG done, by ED staff, COVID swab sent to lab. ap3 14:37 Hospitalizing Provider role handed off by Nick Parada MD [facility] 14:37 Kaiden Dean MD is Hospitalizing Provider. jmm 15:35 No provider procedures requiring assistance completed. ap3 15:36 Patient admitted, IV remains in place. ap3 19:11 Primary Nurse role handed off by Dee Dee Pascual RN mw2 19:22 Rohini Rojo RN is Primary Nurse. sm5 Administered Medications: 11:21 Drug: NS 0.9% 1000 ml Route: IV; Rate: 1 bolus; Site: right wrist; ap3 12:34 Follow up: IV Status: Completed infusion; IV Intake: 1000ml ap3 11:21 Not Given (Patient Refused): Zofran (Ondansetron) 4 mg IVP once; over 2 minutes ap3 11:40 Drug: Bentyl (dicyclomine) 20 mg Route: IM; Site: right gluteus; ap3 14:21 Follow up: Response: No adverse reaction ap3 14:21 Drug: Flagyl (metroNIDAZOLE) 500 mg Volume: 100 ml; Route: IVPB; Rate: 200 ml/hr; ap3 Infused Over: 30 mins; Site: right wrist; 15:04 Follow up: IV Status: Completed infusion ap3 15:04 Drug: Zosyn (piperacillin-tazobactam) 3.375 grams Route: IVPB; Infused Over: 60 mins; jh6 Site: right femoral; 15:37 Follow up: IV Status: Completed infusion ap3 Medication: 15:35 VIS not applicable for this client. ap3 Intake: 12:34 IV: 1000ml; Total: 1000ml. ap3 Outcome: 14:12 Decision to Hospitalize by Provider. jmm 15:35 Admitted to ER Hold. [facility]. ap3 15:35 Condition: good 15:35 Discharge instructions given to patient, family, Instructed on the need for admit, Demonstrated understanding of instructions. 22:04 Patient left the ED. 5 Signatures: Dispatcher [employer] EDMS Florencio Landis PA PA Dee Dee Martinez amCanelo Diop RN RN jDee Dee Reyes RN RN ap3 Ivone Alexander mw2 Cherelle Mcdaniel, RN RN jh6 Rohini Rojo, RN RN sm5
[2021-07-08] MEDS ORDERED: ONDANSETRON 4 MG/2 ML VIAL IV PRN (16:07)
[2021-07-08] MEDS ORDERED: ACETAMINOPHEN 500 MG TAB PO PRN (16:07)
[2021-07-08] MEDS: METRONIDAZOLE 500mg IVPB 500 MG/100 ML BAG IV SCH (16:50)
[2021-07-08] MEDS: D5 0.45 NS 1,000 ML IV SCH ×2 (17:00→22:36)
[2021-07-08 18:33] LABS: Anisocytosis 2+; Blood Morphology Comment NOTED (NOT SEEN); Platelet Estimate DECR
[2021-07-08 18:34] LABS: Poikilocytosis 2+
[2021-07-08] MEDS ORDERED: GLUCAGON 1 MG/VIAL IM PRN (23:05)
[2021-07-08] MEDS ORDERED: D50W 25 GM/50 ML SYRINGE IV PRN (23:05)
[2021-07-08] MEDS ORDERED: clonazePAM 0.5 MG TAB PO PRN (23:09)
[2021-07-08] MEDS ORDERED: MORPHINE 15 MG IR TAB PO PRN (23:09)
[2021-07-08] MEDS ORDERED: D10W 125 ML IV PRN (23:23)
[2021-07-08] MEDS: NA CHLORIDE 0.9% 1,000 ML IV SCH (23:52)
[2021-07-08] MEDS: TBO-FILGRASTIM 480 MCG/0.8 ML SYR SQ SCH (23:52)
[2021-07-08] MEDS: DICYCLOMINE HCL 10 MG CAP PO PRN (23:53)
[2021-07-08] MEDS: METHADONE HCL 10 MG TAB PO SCH (23:53)
[2021-07-09 00:43] VITALS: BMI 28.0
[2021-07-09] MEDS: METRONIDAZOLE 500mg IVPB 500 MG/100 ML BAG IV SCH ×3 (01:53→16:23)
[2021-07-09] MEDS: PIPER TAZO 3.375 GM in NA CHLORIDE 0.9% 100 ML IV SCH ×3 (01:54→16:22)
[2021-07-09] MEDS: DICYCLOMINE HCL 10 MG CAP PO PRN (04:44)
[2021-07-09 06:02] LABS: Albumin 1.8 g/dL (3.4-5.0); Bilirubin Direct 1.1 mg/dL (0-0.2); Bilirubin Total 1.6 mg/dL (0.2-1.0); Potassium 3.4 mmol/L (3.5-5.1); Protein, Total 5.8 g/dL (6.4-8.2)
[2021-07-09 06:14] LABS: Hematocrit 32.9 % (39.6-49.0); MPV 10.2 fL (7.6-11.3); RBC Red Blood Cell Count 3.98 M/uL (4.33-5.43)
[2021-07-09 07:07] LABS: Platelet Estimate DECR; Toxic Granulation PRESENT
[2021-07-09 07:09] LABS: Howell-Jolly Bodies NOTED; Magnesium 1.9 mg/dL (1.8-2.4)
[2021-07-09 07:14] LABS: Blood Morphology Comment NOT SEEN (NOT SEEN)
[2021-07-09] MEDS: INSULIN -REGULAR HUMAN 50 UNIT/0.5 ML ML SQ SCH ×4 (07:30→21:00)
[2021-07-09] MEDS: DIPHENOX/ATROP SULF 1 TAB PO SCH ×2 (07:35→13:12)
[2021-07-09] MEDS ORDERED: POTASSIUM 25 MEQ EFFERV TAB PO ONE (07:36)
[2021-07-09] MEDS: METHADONE HCL 10 MG TAB PO SCH ×2 (08:14→21:25)
[2021-07-09] MEDS: BUSPIRONE HCL 5 MG TABLET PO SCH ×2 (08:15→21:25)
[2021-07-09] MEDS: ESCITALOPRAM 20 MG TAB PO SCH (08:15)
[2021-07-09] MEDS: OLAPARIB 300 MG PO SCH ×2 (08:17→21:00)
--- NOTE | 2021-07-09 09:11 | EKG ---
Test Date: 2021-07-08 Test Time: 14:09:37 Stadium Manager: ALP MEASUREMENT RESULTS: Intervals: Rate: 103 KS: 138 QRSD: 96 QT: 400 QTc: 524 [place]: P: 61 KS: 138 QRS: 47 T: 21 INTERPRETIVE STATEMENTS: Sinus tachycardia Nonspecific ST and T wave abnormality Abnormal ECG No previous ECG available for comparison Electronically Signed On 07-09-21 09:08:17 CDT by Stalin Arboleda
[2021-07-09] MEDS: TBO-FILGRASTIM 480 MCG/0.8 ML SYR SQ SCH (09:23)
[2021-07-09 11:38] LABS: C.diff Antigen/Toxin Ag neg : Tox neg (NEG : NEG)
[2021-07-09] MEDS: NA CHLORIDE 0.9% 1,000 ML IV SCH (13:16)
[2021-07-09 17:55] LABS: MPV 10.2 fL (7.6-11.3); RBC Red Blood Cell Count 3.98 M/uL (4.33-5.43)
[2021-07-09 17:56] LABS: Potassium 2.9 mmol/L (3.5-5.1)
[2021-07-09] MEDS: KCL 20 MEQ/100 mL IVPB 20 MEQ/100 ML BAG IV SCH ×3 (18:31→23:07)
[2021-07-09 18:34] LABS: Absolute Lymphocytes (CBC) ND K/uL (0.7-4.9); Lymphocytes % ND % (15.3-44.8)
--- NOTE | 2021-07-09 19:22 | PN ---
Date of Progress Note: 07/09/2021 Patient's diarrhea has improved somewhat as the day progresses. He has significant amount at night a ccording to his . The patient is not a really good historian. His blood work has improved somew hat on the IV fluids and the medications. I have discussed the case with his oncologist in [place], who felt the cancer drugs could be held if it persists with diarrhea and she would change his treatme nt day from of this week to next week as discussed with her the use of steroids as well. At present, the patient does seem somewhat confused according to his more than usual. We will the refore repeat a blood work later in the day and advance his diet if it is tolerated in the morning. IV access, there has been a lot of discussion held as to whether he use a PICC line or access his por t. His abdomen still shows rather marked tenderness in the left lower quadrant with significant rebo und. However, none quite as marked by his history. Bowel sounds are hyperactive. Extremities show not as much dehydration. We will therefore continue with present regimen. Awaiting stool studies as well. HR/MODL Voice ID: [id number] Report ID: [id number]
[2021-07-09 20:34] LABS: Anisocytosis 2+; Blood Morphology Comment NOTED (NOT SEEN); Burr Cells 1+; Ovalocytes 1+; Platelet Estimate DECR; Poikilocytosis 2+
[2021-07-09] MEDS: DIPHENOX/ATROP SULF 1 TAB PO PRN (21:39)
[2021-07-10] MEDS: PIPER TAZO 3.375 GM in NA CHLORIDE 0.9% 100 ML IV SCH ×3 (01:09→18:59)
[2021-07-10] MEDS: METRONIDAZOLE 500mg IVPB 500 MG/100 ML BAG IV SCH ×3 (01:09→17:28)
--- NOTE | 2021-07-10 01:52 | HP ---
Date of Admission: 07/09/2021 Entrance Complaint: Abdominal pain, diarrhea. History Of Present Illness: The patient presented with the above-outlined symptoms that have been go ing on for 3 or 4 days, progressively worse. He was on his way to the office when the patient and hi s decided to come to the emergency room. Past History: The patient has had significant illnesses over the past few years starting with a nicolás gnant neoplasm on the tail of the pancreas, at which time he underwent a surgical procedure. He then developed some metastasis to the lung. This was biopsied in March of this year. In 2019, he und erwent a pancreatectomy distal, a splenectomy, and operative margins were clear. Since this time, he has had some chemotherapy. He has also had NIDDM, which is in good control on medication, so sujey pimentel he is being treated for metastatic pancreatic cancer at [facility] in [place]. He has been getting multiple therapies through port and orally. He has developed some leukopenia which has been controlled to some extent with the medications Neupogen and was slated for treatment this week. Family History: Noncontributory, although he did have some genetic predispositions to malignancies. Social History: Nonsmoker, nondrinker. Family History: Noncontributory as mentioned above. Physical Examination: General: The patient is very, very acutely ill-appearing elderly man with stable vital signs. Head and Neck: Normocephalic. Pupils equal and reactive to light and accommodation. Fundi negative . Trachea midline. Thyroid not palpable. ENT: Negative. Chest: Clear to P and A. Cardiovascular: PMI midclavicular line. Heart sounds normal. Peripheral pulses present and equal b ilaterally. Abdomen: Marked tenderness in the left lower quadrant with rebound tenderness. Bowel sounds hyperac tive. Extremities: Marked dehydration, good tone of wound bilaterally. Reflexes: Physiologic. Rectal: Deferred. Impression: 1.Abdominal pain, probable acute diverticulitis. 2.Dehydration. 3.Gmp-upreadb-wzmcmvrda diabetes mellitus, good control. 4.Malignant pancreatic cancer tail by history with metastasis to the lung. Plan: Patient will be admitted, placed on IV fluids. CAT scan did reveal diverticulitis in the desc ending colon, therefore, will be started on IV antibiotics. Continue his pain management and discuss ion for all the medications will be held with his oncologist in [place] and he will be started on ___ , Bentyl, and Lomotil to control those symptoms and a white blood count of 0.6. The electroly mary were also being replaced. Depending on the discussion with Oncology, further treatments may be n ecessary. /ROSIO Voice ID: [id number]
[2021-07-10 06:25] LABS: Hematocrit 31.1 % (39.6-49.0); MPV 10.2 fL (7.6-11.3); RBC Red Blood Cell Count 3.78 M/uL (4.33-5.43)
[2021-07-10 06:52] LABS: Potassium 3.2 mmol/L (3.5-5.1)
[2021-07-10] MEDS: INSULIN -REGULAR HUMAN 50 UNIT/0.5 ML ML SQ SCH ×4 (07:30→20:37)
[2021-07-10 08:03] LABS: Anisocytosis 1+; Basophilic Stippling 2+; Blood Morphology Comment NOTED (NOT SEEN); Burr Cells 1+; Dohle Bodies PRESENT; Howell-Jolly Bodies NOTED; Platelet Estimate DECR; Poikilocytosis 2+
[2021-07-10 08:04] LABS: Toxic Granulation NOTED
[2021-07-10] MEDS: OLAPARIB 300 MG PO SCH ×2 (09:00→20:29)
[2021-07-10] MEDS: ESCITALOPRAM 20 MG TAB PO SCH (09:55)
[2021-07-10] MEDS: BUSPIRONE HCL 5 MG TABLET PO SCH ×2 (09:55→20:27)
[2021-07-10] MEDS: TBO-FILGRASTIM 480 MCG/0.8 ML SYR SQ SCH (09:57)
[2021-07-10] MEDS: DIPHENOX/ATROP SULF 1 TAB PO PRN ×2 (10:08→15:22)
[2021-07-10] MEDS: METHADONE HCL 10 MG TAB PO SCH ×2 (10:09→20:27)
[2021-07-10] MEDS: KCL 20 MEQ/100 mL IVPB 20 MEQ/100 ML BAG IV SCH ×2 (11:25→13:41)
[2021-07-10] MEDS: DICYCLOMINE HCL 10 MG CAP PO SCH (15:23)
[2021-07-11] MEDS: METRONIDAZOLE 500mg IVPB 500 MG/100 ML BAG IV SCH ×3 (00:34→17:38)
[2021-07-11] MEDS: PIPER TAZO 3.375 GM in NA CHLORIDE 0.9% 100 ML IV SCH ×3 (00:36→17:38)
[2021-07-11 06:24] LABS: Magnesium 1.7 mg/dL (1.8-2.4)
[2021-07-11] MEDS ORDERED: MAGNESIUM SULFATE 1 gm IVPB 1 GM/100 ML BAG IV ONE (06:45)
[2021-07-11] MEDS: INSULIN -REGULAR HUMAN 50 UNIT/0.5 ML ML SQ SCH ×4 (07:30→20:18)
[2021-07-11] MEDS: DICYCLOMINE HCL 10 MG CAP PO SCH ×3 (08:18→17:37)
[2021-07-11] MEDS: ESCITALOPRAM 20 MG TAB PO SCH (08:18)
[2021-07-11] MEDS: METHADONE HCL 10 MG TAB PO SCH ×2 (08:18→20:24)
[2021-07-11] MEDS: BUSPIRONE HCL 5 MG TABLET PO SCH ×2 (08:19→20:24)
[2021-07-11] MEDS: TBO-FILGRASTIM 480 MCG/0.8 ML SYR SQ SCH (08:19)
[2021-07-11] MEDS: OLAPARIB 300 MG PO SCH ×2 (08:28→19:53)
--- NOTE | 2021-07-11 08:33 | RAD REPORT ---
EXAM DESCRIPTION: RAD - Abdomen 1 View (KUB) - 07/11/2021 5:57 am CLINICAL HISTORY: cont n/v diarrhea Pain COMPARISON: No comparisons FINDINGS: The bowel gas pattern is non-obstructive. No evidence of free air or pneumatosis. No suspi cious calcifications. No significant bony findings. IMPRESSION: Negative examination.
[2021-07-11] MEDS ORDERED: POTASSIUM CL SA 10 MEQ TAB PO ONE (09:00)
[2021-07-11] MEDS ORDERED: KCL 20 MEQ/100 mL IVPB 20 MEQ/100 ML BAG IV SCH (09:00)
[2021-07-11] MEDS: DIPHENOX/ATROP SULF 1 TAB PO PRN (18:46)
[2021-07-12] MEDS: METRONIDAZOLE 500mg IVPB 500 MG/100 ML BAG IV SCH ×3 (00:31→18:41)
[2021-07-12] MEDS: PIPER TAZO 3.375 GM in NA CHLORIDE 0.9% 100 ML IV SCH ×3 (00:32→18:04)
[2021-07-12 05:56] LABS: Magnesium 1.5 mg/dL (1.8-2.4)
[2021-07-12 05:57] LABS: Potassium 2.9 mmol/L (3.5-5.1)
[2021-07-12] MEDS ORDERED: Magnesium Sulfate 2gm IVPB 2 G/50 ML BAG IV ONE (06:00)
[2021-07-12] MEDS: KCL 20 MEQ/100 mL IVPB 20 MEQ/100 ML BAG IV SCH ×5 (06:20→22:41)
[2021-07-12] MEDS: INSULIN -REGULAR HUMAN 50 UNIT/0.5 ML ML SQ SCH ×4 (07:30→19:54)
[2021-07-12] MEDS: METHADONE HCL 10 MG TAB PO SCH ×2 (07:51→21:06)
[2021-07-12] MEDS: DICYCLOMINE HCL 10 MG CAP PO SCH ×3 (07:51→18:01)
[2021-07-12] MEDS: ESCITALOPRAM 20 MG TAB PO SCH (07:54)
[2021-07-12] MEDS: BUSPIRONE HCL 5 MG TABLET PO SCH ×2 (07:54→21:06)
[2021-07-12] MEDS: TBO-FILGRASTIM 480 MCG/0.8 ML SYR SQ SCH (07:55)
[2021-07-12] MEDS: OLAPARIB 300 MG PO SCH ×2 (09:00→21:00)
[2021-07-12] MEDS: DIPHENOX/ATROP SULF 1 TAB PO PRN ×2 (10:13→23:12)
--- NOTE | 2021-07-12 14:43 | RAD REPORT ---
EXAM DESCRIPTION: CTAbdomen Pelvis W Contrast - 07/12/2021 2:32 pm CLINICAL HISTORY: diverticulitis COMPARISON: Abdomen Pelvis Wo Contrast dated 07/08/2021; Abdomen 1 View (KUB) dated 07/11/2021 TECHNIQUE: CT of the abdomen and pelvis was performed. All CT scans are performed using dose optimization technique as appropriate and may include automated exposure control or mA/KV adjustment according to patient size. FINDINGS: Lower chest: Worsening consolidation in the right lower lobe. Re- demonstrated 9 mm right lower lobe nodule located laterally. Liver: Hepatic steatosis. Subcentimeter lesion in the hepatic dome is likely benign. Biliary: No biliary ductal dilatation. Stomach: No significant focal abnormality. Duodenum: No significant focal abnormality. Pancreas: Distal pancreatectomy Spleen: Splenectomy. Adrenal: No suspicious lesions. Kidney/ureter: No hydronephrosis. No renal calculi. Retroperitoneum: No retroperitoneal adenopathy. Vascular: No aneurysm. Bowel: Inflammatory changes are again noted at the proximal sigmoid. Mottled gas along the superior a nd lateral margin of the proximal sigmoid may represent a small contained perforation.. It measures a pproximately 2.1 cm. Peritoneum: No ascites or free air. Bladder: Grossly unremarkable. Reproductive: No adnexal masses. Bones: No acute fracture. Other: n/a IMPRESSION: 1. Sigmoid diverticulitis, now with small contained perforation. No abscess or bowel obs truction. 2. Irregular consolidative airspace disease in the right lower lobe that has increased from 2 and most concerning for pneumonia. Reportedly, the patient has a history of lung cancer. If the pat ient recently received radiation at this location, this could represent postradiation pneumonitis.
[2021-07-12 15:57] LABS: Absolute Lymphocytes (CBC) 0.7 K/uL (0.7-4.9); Hematocrit 31.3 % (39.6-49.0); Lymphocytes % 5.4 % (15.3-44.8); MPV 10.4 fL (7.6-11.3); RBC Red Blood Cell Count 3.79 M/uL (4.33-5.43)
[2021-07-12 17:26] LABS: Blood Morphology Comment NOTED (NOT SEEN); Burr Cells 2+; Platelet Estimate ADEQ
--- NOTE | 2021-07-12 20:09 | PN ---
Date of Progress Note: 07/10/2021 The patient is still and having some loose stools who has normal However, phys ical exam reveals a significant improvement in the left lower quadrant pain and also on physical exam he has much less rebound tenderness. His white count has improved somewhat as well. Continue on hi s present regimen. HR/MODL Voice ID: [id number] Report ID: [id number]
--- NOTE | 2021-07-12 20:40 | PN ---
Date of Progress Note: 07/11/2021 The patient is having alternating bouts of AMS, possible sundowning syndrome. However, his physical condition has somewhat stabilized and improved. He is not now as tender. However, he still complain s of rectal pain in certain positions, probably compatible with the colitis seen on the CT scan. His appetite is still decreased. His white count is however improving. We are still having problems co ntrolling his potassium and magnesium. However, his does stated he has problems with the magnes ium in [place] during his chemo. His present chemo requires every 2 weeks and discussed with his onc ologist to give him off this week depending on his status for next week. His tenderness once again h as improved. KUB basically normal since he still anorectic and having some symptoms specially in the rectal area. We will repeat CT scan in the a.m. Continue on IV antibiotics through his port and co ntinue supportive therapy with potassium, magnesium protocol. HR/MODL Voice ID: [id number] Report ID: [id number]
[2021-07-13] MEDS: PIPER TAZO 3.375 GM in NA CHLORIDE 0.9% 100 ML IV SCH ×3 (00:32→16:59)
[2021-07-13 04:49] LABS: Absolute Lymphocytes (CBC) 1.2 K/uL (0.7-4.9); Hematocrit 30.9 % (39.6-49.0); Lymphocytes % 7.4 % (15.3-44.8); MPV 10.1 fL (7.6-11.3); RBC Red Blood Cell Count 3.68 M/uL (4.33-5.43)
[2021-07-13 05:07] LABS: Magnesium 1.7 mg/dL (1.8-2.4); Potassium 3.4 mmol/L (3.5-5.1)
[2021-07-13] MEDS ORDERED: MAGNESIUM SULFATE 1 gm IVPB 1 GM/100 ML BAG IV ONE (05:08)
[2021-07-13] MEDS: KCL 20 MEQ/100 mL IVPB 20 MEQ/100 ML BAG IV SCH ×2 (05:27→09:44)
[2021-07-13] MEDS: INSULIN -REGULAR HUMAN 50 UNIT/0.5 ML ML SQ SCH ×4 (07:30→19:41)
[2021-07-13] MEDS: DICYCLOMINE HCL 10 MG CAP PO SCH ×3 (07:52→17:00)
[2021-07-13] MEDS: TBO-FILGRASTIM 480 MCG/0.8 ML SYR SQ SCH (09:00)
[2021-07-13] MEDS: OLAPARIB 300 MG PO SCH ×2 (09:00→19:42)
[2021-07-13] MEDS: METRONIDAZOLE 500mg IVPB 500 MG/100 ML BAG IV SCH ×3 (09:49→16:58)
[2021-07-13] MEDS: DIPHENOX/ATROP SULF 1 TAB PO PRN ×2 (09:50→20:03)
[2021-07-13] MEDS: ESCITALOPRAM 20 MG TAB PO SCH (09:51)
[2021-07-13] MEDS: METHADONE HCL 10 MG TAB PO SCH ×2 (09:51→20:03)
[2021-07-13] MEDS: BUSPIRONE HCL 5 MG TABLET PO SCH ×2 (09:51→20:03)
--- NOTE | 2021-07-13 15:29 | PN ---
Date of Progress Note: 07/13/2021 The patient is still awaiting transfer okay. Apparently, he has some bad situations at [facility]. Benjy hubbard has been accepted. Physically, he seems status quo, although on examination today, there is a urvashi le more tenderness in the left mid abdomen. No rebound. His potassium and magnesium still made some adjustment; however, it is somewhat better. His white count is now stable as well. He still compla ins of rectal discomfort positionally; however, he is more mobile. The diarrhea is still there as we ll. Continue with his same regimen awaiting acceptance in [facility]. HR/MODL Voice ID: [id number] Report ID: [id number]
[2021-07-13] MEDS ORDERED: POTASSIUM CL SA 10 MEQ TAB PO ONE (18:09)
[2021-07-14] MEDS: PIPER TAZO 3.375 GM in NA CHLORIDE 0.9% 100 ML IV SCH ×3 (00:02→16:26)
[2021-07-14] MEDS: METRONIDAZOLE 500mg IVPB 500 MG/100 ML BAG IV SCH ×3 (00:02→16:26)
[2021-07-14 04:25] LABS: Absolute Lymphocytes (CBC) 1.7 K/uL (0.7-4.9); Hematocrit 31.2 % (39.6-49.0); MPV 9.9 fL (7.6-11.3); RBC Red Blood Cell Count 3.74 M/uL (4.33-5.43)
[2021-07-14 04:39] LABS: Magnesium 1.5 mg/dL (1.8-2.4); Potassium 3.3 mmol/L (3.5-5.1)
[2021-07-14] MEDS ORDERED: Magnesium Sulfate 2gm IVPB 2 G/50 ML BAG IV ONE ×2 (04:48→04:49)
[2021-07-14] MEDS: KCL 20 MEQ/100 mL IVPB 20 MEQ/100 ML BAG IV SCH ×2 (05:32→07:55)
[2021-07-14] MEDS: INSULIN -REGULAR HUMAN 50 UNIT/0.5 ML ML SQ SCH ×4 (07:30→20:11)
[2021-07-14] MEDS: BUSPIRONE HCL 5 MG TABLET PO SCH ×2 (08:01→20:08)
[2021-07-14] MEDS: METHADONE HCL 10 MG TAB PO SCH ×2 (08:01→20:08)
[2021-07-14] MEDS: ESCITALOPRAM 20 MG TAB PO SCH (08:01)
[2021-07-14] MEDS: DICYCLOMINE HCL 10 MG CAP PO SCH ×3 (08:03→16:25)
[2021-07-14] MEDS: TBO-FILGRASTIM 480 MCG/0.8 ML SYR SQ SCH (08:03)
[2021-07-14] MEDS: OLAPARIB 300 MG PO SCH ×2 (08:03→20:11)
[2021-07-14 08:43] LABS: Anisocytosis 1+; Blood Morphology Comment NOTED (NOT SEEN); Platelet Estimate ADEQ; Toxic Granulation PRESENT
[2021-07-14 08:44] LABS: Burr Cells FEW
[2021-07-14] MEDS: DIPHENOX/ATROP SULF 1 TAB PO PRN ×2 (09:29→17:48)
--- NOTE | 2021-07-14 11:38 | CON ---
Date of Consultation: 07/14/2021 Reason For Consultation: Diverticulitis. History Of Present Illness: The patient is a 61-year-old gentleman with metastatic pancreatic cancer who was admitted with long segment circumferential wall thickening involving the distal descending c olon to the mid sigmoid approximate 15 cm with stranding in the adjacent fat which was consistent wit h diverticulitis. Colitis could also have this appearance. The patient, however, is neutropenic fro m his chemotherapy treatment that he has been getting for his metastatic pancreatic disease which was treated with resection of the tail of the pancreas and splenectomy, but he has mets to the lungs now . The patient is being medically managed and Dr. Dean had notified the oncologist and was discuss ing the case in detail with the oncologist and medically manages the appropriate treatment at this ti me. I was asked to from a surgical standpoint give my input with regard to this case. The patient i s awake, alert. He feels better. His pain is better. He has no nausea or vomiting. He did eat tod ay and had a large bowel movement diarrhea with loose bowel movement after he ate but his symptoms si nce admission have gotten markedly better. The patient does not have any sore throat, runny nose, co ugh, headaches, dizziness, chest pain, fever or chills. Review of Systems: Otherwise unremarkable. Past Medical History: Significant for pancreatic cancer stage IV, type 2 diabetes. Past Surgical History: Distal pancreatectomy, splenectomy. Allergies: NONE. Social History: The patient is a former smoker. Currently, he does not smoke or drink alcohol. Family History: Noncontributory. Results: phys Physical Examination: Vital Signs: Currently stable. He is afebrile. General: He is awake, alert, and oriented x3. Head And Neck: Cranial nerves 2 through 12 are grossly within normal limits. No neck masses. No JV D. Throat clear. Neck is supple. Chest: Clear. Heart: S1 and S2. Abdomen: Soft, nondistended, nontender. Positive bowel sounds. No peritonitis at all. Extremities: Neurovascularly intact. Neuro: Nonfocal. Laboratory Data: His count today is 12.2, down from 15.7, does not have a left shift. Chemistry rev iewed. He has low magnesium and potassium which are being replaced. Assessment: Acute descending colon sigmoid diverticulitis, possible colitis in a patient with stage IV pancreatic cancer. Recommendations: At this time, the patient needs to continue medical management with antibiotics. Floyd tomlin appears well enough to be discharged in 24-48 hours on oral antibiotics. He can follow up with his oncologist regarding further care. There is absolutely no need for any acute surgical inter vention at this time. We will follow this patient while in the hospital. The patient is clinically stable and improving. /MODL Voice ID: [id number] Report ID: [id number]
[2021-07-14] MEDS ORDERED: POTASSIUM CL SA 10 MEQ TAB PO ONE (16:13)
[2021-07-14] MEDS ORDERED: MAGNESIUM SULFATE 1 gm IVPB 1 GM/100 ML BAG IV ONE (16:14)
[2021-07-14] MEDS ORDERED: HYDROCORTISONE ACETATE 25MG SUPP PR PRN (16:56)
--- NOTE | 2021-07-14 17:02 | P.PN ---
Date of Service: 07/14/21 Subjective: improving diarrhea persists, less frequent, less volume mild abdominal discomfort, more rectal pain at this time spot of blood noted with stool; h/o hemorrhoids ROS: 10 point ROS as noted above, otherwise negative Physical exam GEN: Alert, oriented, NAD HEENT: Normal conjunctiva, sclera anicteric CV: Regular rate and rhythm, no edema Pulm: Nonlabored respirations on room air ABD: Soft, nontender, nondistended Neuro: Normal speech, normal affect Problem List Acute descending colon sigmoid diverticulitis, possible colitis Stage IV pancreatic cancer DM2, non-insulin dependent improving continue empiric antibiotics continue diet as tolerated on bentyl and lamotil for diarrhea - improving leukocytosis downtrending remains afebrile continues with hypokalemia, likely secondary to GI losses - diarrhea improving Dispo: home, 1-2 days pending improvement of pain / potassium / diarrhea Time Spent Managing Pts Care (In Minutes): 35
[2021-07-15] MEDS: PIPER TAZO 3.375 GM in NA CHLORIDE 0.9% 100 ML IV SCH ×2 (00:38→09:15)
[2021-07-15] MEDS: METRONIDAZOLE 500mg IVPB 500 MG/100 ML BAG IV SCH ×2 (00:39→08:16)
[2021-07-15 04:22] VITALS: TEMP 97.3
[2021-07-15 04:58] LABS: Hematocrit 32.2 % (39.6-49.0); Lymphocytes % 18.4 % (15.3-44.8); MPV 10.1 fL (7.6-11.3); RBC Red Blood Cell Count 3.84 M/uL (4.33-5.43)
[2021-07-15 05:12] LABS: Albumin 1.6 g/dL (3.4-5.0); Bilirubin Direct 0.2 mg/dL (0-0.2); Bilirubin Total 0.3 mg/dL (0.2-1.0); Magnesium 1.6 mg/dL (1.8-2.4); Potassium 3.3 mmol/L (3.5-5.1); Protein, Total 4.8 g/dL (6.4-8.2)
[2021-07-15] MEDS ORDERED: MAGNESIUM SULFATE 1 gm IVPB 1 GM/100 ML BAG IV ONE (06:13)
--- NOTE | 2021-07-15 06:40 | P.PN ---
Date of Service: 07/15/21 Subjective: ROS: 10 point ROS as noted above, otherwise negative Physical exam GEN: Alert, oriented, NAD HEENT: Normal conjunctiva, sclera anicteric CV: Regular rate and rhythm, no edema Pulm: Nonlabored respirations on room air ABD: Soft, nontender, nondistended Neuro: Normal speech, normal affect Problem List Acute descending colon sigmoid diverticulitis, possible colitis Stage IV pancreatic cancer DM2, non-insulin dependent improving continue empiric antibiotics continue diet as tolerated on bentyl and lamotil for diarrhea - improving leukocytosis downtrending remains afebrile continues with hypokalemia, likely secondary to GI losses - diarrhea improving Dispo: home, 1-2 days pending improvement of pain / potassium / diarrhea Time Spent Managing Pts Care (In Minutes): 35
[2021-07-15] MEDS: INSULIN -REGULAR HUMAN 50 UNIT/0.5 ML ML SQ SCH ×2 (07:30→11:27)
[2021-07-15] MEDS: DICYCLOMINE HCL 10 MG CAP PO SCH ×2 (08:16→11:37)
[2021-07-15] MEDS: OLAPARIB 300 MG PO SCH (09:00)
[2021-07-15] MEDS ORDERED: POTASSIUM CL SA 10 MEQ TAB PO ONE (09:00)
[2021-07-15] MEDS: ESCITALOPRAM 20 MG TAB PO SCH (09:13)
[2021-07-15] MEDS: DIPHENOX/ATROP SULF 1 TAB PO PRN (09:13)
[2021-07-15] MEDS: BUSPIRONE HCL 5 MG TABLET PO SCH (09:14)
[2021-07-15] MEDS: METHADONE HCL 10 MG TAB PO SCH (09:14)
--- NOTE | 2021-07-15 09:27 | P.DS ---
Admission Date: 07/09/21 Discharge Date: 07/15/21 Disposition: ROUTINE DISCHARGE Discharge Condition: FAIR Reason for Admission: acute diverticulitis Consultations: General Surgery - Dr. Gonzalez Brief History of Present Illness: 61yo M, presented to ED with progressively worsening abdominal pain. Diagnosed with acute diverticulitis and admitted for IV antibiotics. Hospital Course: Patient was found to have acute diverticulitis. He was treated with empiric antibiotics, bowel rest, and IV fluids. He developed diarrhea and change in pain, so repeat CT abdomen/pelvis was performed and revealed a small area concerning for contained microperforation. Initial attempts to transfer the patient to [place] where his surgeon can see him were unsuccessful. General Surgery, Dr. Gonzalez, here saw the patient in consult. No need for surgical intervention. Patient's hospitalization / treatment course was complicated by diarrhea and mild-moderate hypomagnesemia/hypokalemia. Electrolyte levels improved as his diarrhea improved - treated with lomotil and bentyl. On day of discharge, patient was without abdominal tenderness, reported some rectal pain that has been occurring from the diarrhea and h/o hemorrhoids. He was tolerated his PO diet without nausea/vomiting, and leukocytosis resolved. Cultures were negative. Deemed stable for discharge home. Prescribed 10 more days of Augmentin, potassium, magnesium, lomotil, and bentyl. Given prescription/orders to obtain bloodwork (BMP + Mg) in ~4-5 days. Follow up with PCP in ~1 week, to review labs and monitor progress. Can titrate down on frequency of lomotil and bentyl as diarrhea continues to improve / more formed. Vital Signs/Physical Exam: Temp Pulse Resp BP Pulse Ox 97.3 F 65 16 138/75 96 07/15/21 08:00 07/15/21 08:00 07/15/21 09:14 07/15/21 08:00 07/15/21 09:14 Physical exam GEN: Alert, oriented, NAD HEENT: Normal conjunctiva, sclera anicteric CV: Regular rate and rhythm, no edema Pulm: Nonlabored respirations on room air ABD: Soft, nontender, nondistended Neuro: Normal speech, normal affect Laboratory Data at Discharge: WBC 10.7 K/uL (4.3-10.9) 07/15/21 04:27 Hgb 10.7 g/dL (13.6-17.9) L 07/15/21 04:27 Hct 32.2 % (39.6-49.0) L 07/15/21 04:27 Plt Count 224 K/uL (152-406) D 07/15/21 04:27 Sodium 141 mmol/L (136-145) 07/15/21 04:27 Potassium 3.3 mmol/L (3.5-5.1) L 07/15/21 04:27 BUN 8 mg/dL (7-18) 07/15/21 04:27 Creatinine 0.64 mg/dL (0.55-1.3) 07/15/21 04:27 Glucose 144 mg/dL (74-106) H 07/15/21 04:27 Magnesium 1.6 mg/dL (1.8-2.4) L 07/15/21 04:27 Total Bilirubin 0.3 mg/dL (0.2-1.0) 07/15/21 04:27 AST 12 U/L (15-37) L D 07/15/21 04:27 ALT 18 U/L (12-78) 07/15/21 04:27 Alkaline Phosphatase 87 U/L (45-117) 07/15/21 04:27 Lipase 20 U/L (73-393) L 07/09/21 05:27 Home Medications: Buspirone HCl [Buspar*] 5 mg PO BID 07/08/21 Capecitabine 500 mg PO SEECOM 07/08/21 Dapagliflozin Propanediol [Farxiga] 5 mg PO DAILY 07/08/21 Escitalopram [Lexapro*] 40 mg PO DAILY 07/08/21 Metformin HCl 1,500 mg PO DAILY AT SUPPER 07/08/21 Metformin HCl [Glucophage*] 1,000 mg PO BREAKFAST 07/08/21 Methadone HCl 5 mg PO Q12H 07/08/21 Morphine Ir [MSIR (Morphine Sulfate IR)*] 15 mg PO Q6HP PRN 07/08/21 Olaparib [Lynparza] 300 mg PO BID 07/08/21 Pegfilgrastim-Bmez [Ziextenzo] 6 mg SQ SEECOM 07/08/21 clonazePAM [Clonazepam] 0.5 mg PO BIDP PRN 07/08/21 Amox/Clavulanate [Augmentin 875-125 Tab] 875 mg PO BID 10 Days #20 tab 07/15/21 Dicyclomine [Bentyl*] 20 mg PO TIDWM 10 Days #60 cap 07/15/21 Diphenox/Atropine [Lomotil*] 2 tab PO Q8HR PRN #50 tab 07/15/21 Diphenox/Atropine [Lomotil] 2 tab PO Q8H PRN 10 Days #50 tab 07/15/21 Magnesium Chloride [Slow-Mag] 2 tab PO DAILY 10 Days #20 tab 07/15/21 Potassium Chloride 2 tab PO DAILY 10 Days #20 tab.er.prt 07/15/21 New Medications: Amox/Clavulanate [Augmentin 875-125 Tab] 875 mg PO BID 10 Days #20 tab Dicyclomine [Bentyl*] 20 mg PO TIDWM 10 Days #60 cap Diphenox/Atropine [Lomotil*] 2 tab PO Q8HR PRN #50 tab PRN Reason: Diarrhea Diphenox/Atropine [Lomotil] 2 tab PO Q8H PRN 10 Days #50 tab PRN Reason: Diarrhea Potassium Chloride 2 tab PO DAILY 10 Days #20 tab.er.prt Magnesium Chloride [Slow-Mag] 2 tab PO DAILY 10 Days #20 tab Followup: Kaiden Dean MD [Primary Care Provider] - 1-2 Weeks ([facility] to schedule an appoinment) Time spent managing pt's care (in minutes): 45
[2021-07-15 10:20] VITALS: O2SAT 94
[2021-07-15] MEDS ORDERED: HEPARIN 500 UNIT/5 ML SYR IV SCH (11:00)
[2021-07-15 12:03] VITALS: BP 113/75
== END 2021-07-15 11:55 | disposition home or self-care (01) | DRG 392 ==
LOC: ER 10:39 → ERHOLD 16:06 → 4TH 20:56 → OBSVTOIN 07-09 21:09
PROVIDERS: ADMIT Family Medicine; ATTEND Family Medicine
DX: K57.20 Diverticulitis of large intestine with perforation and abscess without bleeding (principal); C25.2 Malignant neoplasm of tail of pancreas; C78.00 Secondary malignant neoplasm of unspecified lung; K52.9 Noninfective gastroenteritis and colitis, unspecified; E83.42 Hypomagnesemia; E87.6 Hypokalemia; E11.9 Type 2 diabetes mellitus without complications; D70.1 Agranulocytosis secondary to cancer chemotherapy; T45.1X5A Adverse effect of antineoplastic and immunosuppressive drugs, initial encounter; Z87.891 Personal history of nicotine dependence; Z90.411 Acquired partial absence of pancreas; Z90.81 Acquired absence of spleen; Z20.822 Contact with and (suspected) exposure to COVID-19
CPT/HCPCS: 36415; 74018; 74176; 74177; 80048; 80053; 80076; 81003; 82947; 83690; 83735; 84132; 85025; 87045; 87046; 87177; 87209; 87324; 87449; 93005; 96372; 99285; G0378; J0500; J1447; J1642; J1815; J2405; J2543; J3475; J3480; J3490; J7030; J7799; Q9967; U0003

== ENCOUNTER 2021-08-03 09:51 | Emergency (ER) | payer BC ==
--- OUTSIDE RECORDS SUMMARY | 2021-08-03 09:54 | XMS REPORT | Continuity of Care Document ---
:1960 Author Organization [facility] t Address [address] [place] [address] Care Team Providers Name Role Phone Dianne Primary Care Physician DELVIN Attending Clinician Unavailable DELVIN Attending Clinician Unavailable KALIN CHOPRA Attending Clinician Unavailable DAVID Attending Clinician Unavailable David JENNINGS Attending Clinician DELVIN Attending Clinician Unavailable DALIA Attending Clinician Unavailable LIZ Attending Clinician Unavailable LILIANE Attending Clinician Unavailable Payers Payer Name Policy Type Policy Number Effective Date Expiration Date Rigoberto cabrera [facility] [id number] 2018 2018 00:00:00 CHOICE/CHOICE 00:00:00 PLUS BCBSTX PPO [id number] 2020 2024 00:00:00 00:00:00 Problems Condition Condition [...] Systolic 2018-03-16 13:50:00 136 mm[Hg] Location: [place]; [facility] Position: Sitting BP Diastolic 2018-03-16 13:50:00 88 mm[Hg] Location: [place]; [facility] Position: Sitting Height 2018-03-16 13:50:00 [...] Procedure Date / Time Performed Performing Clinician [facility] e CT ABDOMEN PELVIS W CONTRAST 2020-10-01 16:04:55 Delvin Putao [facility] CT CHEST W CONTRAST 2020-10-01 16:04:44 [facility]wo 2018-03-16 00:00:00 [facility] [id number] [[facility]] CULTURE, URINE, 2018-02-19 00:00:00 [facility] ROUTINE [Q] BLADDER CANCER, FISH 2018-01-19 00:00:00 [facility] [Q] CYTOLOGY, NON-PRESCHOOL ADVISER 2017-05-12 00:00:00 [facility] History of Vasectomy [facility] Encounters Start End Encounter Admission Attending Care Care Encounter Source Date/Time Date/Time Type Type Clinicians Facility Department ID 2021-08-01 Outpatient [facility] [id number] [place] 11:31:37 [id number] [facility] 2021-06-25 Outpatient [facility] [id number] [place] 10:17:53 [id number] [facility] 2021-06-24 Outpatient [facility] [id number] [place] 11:54:33 [id number] [facility] 2021-06-17 Outpatient DELVIN, PUTAO [facility] [id number] [place] 01:03:23 [id number] [facility] 2021-06-11 Outpatient [facility] [id number] [place] 07:00:32 [id number] [facility] 2021-05-13 Outpatient [facility] [id number] [place] 10:04:29 [id number] [facility] 2020-10-05 Outpatient DELVIN, PUTAO [facility] [id number] [place] 01:05:36 [facility] 2019-09-22 Outpatient DELVIN, PUTAO [facility] [id number] [facility] 10:45:51 2021-06-27 2021-07-26 Outpatient KEYSHA, [facility] [id number] [facility] 09:10:00 23:59:00 MARIAJOSE 2021-05-30 2021-06-28 Outpatient DAVID, [facility] [id number] [facility] 13:11:00 23:59:00 CASSIDY 2021-05-15 2021-06-13 Outpatient DELVIN, PUTAO [facility] [id number] [facility] 10:15:00 23:59:00 2021-05-21 2021-05-21 Telephone OWEN Guerrero [id number] [place] 00:00:00 00:00:00 Cassidy SANCHEZ [id number] [facility] [id number] 2021-03-18 2021-04-16 Outpatient DELVIN, PUTAO [facility] [id number] [facility] 10:24:00 23:59:00 2021-04-10 2021-04-10 Outpatient DELVIN, PUTAO [facility] [id number] [facility] 07:58:00 17:45:00 2021-01-21 2021-02-15 Outpatient DELVIN, PUTAO [facility] [id number] [facility] 11:26:00 18:00:00 2021-01-18 2021-01-18 EXT MHH OP Delvin, Putao EXT MSRDP [id number] [place] 00:00:00 00:00:00 LOCATION [id number] H ealth [id number] 2020-11-26 2020-11-26 Outpatient DELVIN, PUTAO [facility] [id number] [facility] 10:57:00 10:57:00 2020-11-23 2020-11-23 EXT MHH OP Delvin, Putao EXT MSRDP [id number] [place] 00:00:00 00:00:00 LOCATION [id number] H ealth [id number] 2020-10-01 2020-10-30 Outpatient DELVIN, PUTAO [facility] [id number] [facility] 11:23:00 23:59:00 2020-09-28 2020-09-28 EXT MHH OP EXT MSRDP [id number] [place] 00:00:00 00:00:00 LOCATION [id number] H ealth [id number] 2020-07-09 2020-08-07 Outpatient DELVIN, PUTAO [facility] [id number] [facility] 12:05:00 23:59:00 2020-07-09 2020-07-09 EXT MHH OP Delvin, Putao EXT MSRDP [id number] [place] 00:00:00 00:00:00 LOCATION [id number] H ealth [id number] 2020-04-16 2020-05-15 Outpatient DELVIN, PUTAO [facility] [id number] [facility] 11:53:00 23:59:00 2020-01-17 2020-02-15 Outpatient DELVIN, PUTAO [facility] [id number] [facility] 10:36:00 23:59:00 2019-07-06 2019-07-06 Outpatient DELVIN, PUTAO [facility] [id number] [facility] 10:36:00 10:36:00 2019-06-08 2019-06-08 [facility] DELVIN, MIRANDA, OWEN [facility] [id number] [place] 10:45:00 10:45:00 t; Amber HARGROVE i, ans M.D. 2019-04-14 2019-04-14 Outpatient DELVIN PUTAO [facility] [id number] MH 10:29:00 10:29:00 2019-02-17 2019-02-17 Appointmen DELVIN, PUTAO, UTP UTP [id number] [place] 11:00:00 11:00:00 t; Amber HARGROVE i, ans M.D. 2019-02-17 2019-02-17 [facility] [id number] [facility] 09:20:00 09:20:00 2019-02-03 2019-02-03 [id number] 09:58:00 09:58:00 2019-01-20 2019-01-20 Appointmen DELVIN, PUTAO, UTP UTP [id number] [place] 11:30:00 11:30:00 t; Amber HARGROVE i, ans M.D. 2019-01-06 2019-01-06 Appointmen DELVIN PUTAO, UTP UTP [id number] UT 09:20:00 09:20:00 t; Amber HARGROVE i, ans M.D. 2018-12-23 2018-12-23 Appointmen DELVIN PUTAO, UTP UTP [id number] UT 10:30:00 10:30:00 t; Amber HARGROVE i, ans M.D. 2018-12-23 2018-12-23 Outpatient [facility] ISABELA [id number] MHHH 09:50:00 09:50:00 2018-12-09 2018-12-09 Appointmen DELVIN, PUTAO, UTP UTP [id number] [place] 10:45:00 10:45:00 t; Amber HARGROVE i, ans M.D. 2018-12-02 2018-12-02 Appointmen DELVIN, PUTAO, UTP UTP [id number] UT 11:00:00 11:00:00 t; Amber HARGROVE i, ans M.D. 2018-11-11 2018-11-11 Appointmen DELVIN PUTAO, UTP UTP [id number] UT 12:30:00 12:30:00 t; Amber HARGROVE i, ans M.D. 2018-11-11 2018-11-11 [facility] [id number] MH 10:13:00 10:13:00 2018-09-30 2018-09-30 [facility] [id number] [facility] 10:29:00 10:29:00 2018-09-30 2018-09-30 Appointmen MIRANDA HARGROVE, UTP UTP [id number] [place] 09:00:00 09:00:00 t; Amber HARGROVE i, ans M.D. 2018-09-17 2018-09-17 Appointmen OWEN GÓMEZ UTP [id number] [place] 07:30:00 07:30:00 t; MICHELLE GÓMEZ Physi ci CURTIS, M.D. ans M.D. 2018-09-17 2018-09-17 Inpatient U [facility] [id number] MHHH 14:53:00 05:39:00 2018-08-26 2018-08-26 Appointmen MIRANDA HARGROVE, UTP UTP [id number] [place] 11:00:00 11:00:00 t; Amber HARGROVE i, ans M.D. 2018-08-23 2018-08-23 Appointmen MIRANDA HARGROVE, UTP UTP [id number] UT 11:45:00 11:45:00 t; Amber HARGROVE i, ans M.D. 2018-08-12 2018-08-12 Appointmen MIRANDA HARGROVE, UTP UTP [id number] UT 11:30:00 11:30:00 t; Amber HARGROVE i, ans M.D. 2018-08-12 2018-08-12 [facility]patient [facility] [id number] MH 08:56:00 08:56:00 2018-08-05 2018-08-05 Appointmen DELVIN PUTRADHA, UTP UTP [id number] [place] 11:00:00 11:00:00 t; Amber HARGROVE i, ans M.D. 2018-07-29 2018-07-29 Appointmen MIRANDA HARGROVE, UTP UTP [id number] [place] 13:00:00 13:00:00 t; Amber HARGROVE Physic i PUTAOkian M.D. 2018-07-15 2018-07-15 Appointmen DELVIN PUTAO, UTP UTP [id number] [place] 09:45:00 09:45:00 t; Amber HARGROVE Physic i PUTAOkian M.D. 2018-07-08 2018-07-08 Appointmen DELVIN PUTAO, UTP UTP [id number] [place] 09:45:00 09:45:00 t; Amber HARGROVE Physic i PUTAOkian M.D. 2018-07-08 2018-07-08 Outpatient [facility] [id number] [facility] 09:16:00 09:16:00 2018-07-01 2018-07-01 Appointmen DELVIN, PUTAO, UTP UTP [id number] [place] 11:00:00 11:00:00 t; Amebr HARGROVE Physic i PUTkian GARCIA M.D. 2018-06-24 2018-06-24 Appointmen DELVIN, PUTAO, UTP UTP [id number] [place] 11:00:00 11:00:00 t; Amber HARGROVE Physic i PUTAOkian M.D. 2018-06-17 2018-06-17 Appointmen DELVIN PUTAO, UTP UTP [id number] [place] 10:30:00 10:30:00 t; Amber HARGROVE Physic i PUTkian GARCIA M.D. 2018-06-10 2018-06-10 Appointmen DELVIN, PUTAO, UTP UTP [id number] [place] 14:45:00 14:45:00 t; Amber HARGROVE Physic i PUTAOkian M.D. 2018-06-03 2018-06-03 Appointmen DELVIN, PUTAO, UTP UTP [id number] [place] 11:00:00 11:00:00 t; Amber HARGROVE Physic i PUTkian GARCIA M.D. 2018-06-03 2018-06-03 Outpatient [facility] [id number] [facility] 08:37:00 08:37:00 2018-05-20 2018-05-20 Appointmen DELVIN, PUTAO, UTP UTP [id number] [place] 14:00:00 14:00:00 t; Ambre HARGROVE Physic i PUTkian GARCIA M.D. 2018-05-06 2018-05-06 Appointmen DELVIN, PUTAO, [facility] UTP [id number] [place] 10:00:00 10:00:00 t; Amber HARGROVE i kian JEAN M.D. 2018-04-29 2018-04-29 Appointmen DELVIN, PUTAO, UTP UTP [id number] [place] 11:00:00 11:00:00 t; Amber HARGROVE i, ans M.D. 2018-04-29 2018-04-29 Appointmen MHH, GASTRO UTP UTP [id number] [place] 08:00:00 08:00:00 t; [facility], Physic i GASTRO ans 2018-03-16 2018-03-[facility] [id number] [place] 14:00:00 14:00:00 t; Kaitlin COHN M.D. ans STEVEN, M.D. 2018-02-24 2018-02-24 [facility] LILIANE, [facility] UTP [id number] [place] 09:00:00 09:00:00 t; Skyler COHN i, M.D. ans STEVEN, M.D. 2018-01-19 2018-01-19 [facility] [id number] [place] 13:00:00 13:00:00 t; Kaitlin COHN M.D. ans STEVEN, M.D. 2017-09-15 2017-09-15 [facility] [id number] [place] 14:00:00 14:00:00 t; Kaitlin COHN M.D. ans STEVEN, M.D. 2017-08-11 2017-08-11 [facility] LILIANE, [facility] UTP [id number] [place] 10:00:00 10:00:00 t; Skyler COHN i, M.D. ans STEVEN, M.D. 2017-05-12 2017-05-12 [facility] LILIANE, [facility] Urologic [id number] UT 10:00:00 10:00:00 t; Kaitlin COHN M.D. ans STEVEN, M.D. 2017-01-20 2017-01-20 [facility] [id number] [place] 09:15:00 09:15:00 t; Skyler COHN i, M.D. ans STEVEN, M.D. 2016-12-16 2016-12-16 [facility] [id number] [place] 13:00:00 13:00:00 t; Skyler COHN i, M.D. ans STEVEN, M.D. Results Test Test Test Results Result Source Description Time Comments Comments CT 2019-05 EXAM: CT ABDOMEN AND PELVIS [place] Abdomen/Pelvis -13 WITH CONTRASTDATE: 05/30/2019 Physicians w contrast 11:30:0 11:32 AM CDTINDICATION: - 27109 0 C25.2 Malignant neoplasm of tail of pancreasADDITIONAL INFORMATION: None.COMPARISON: History of bladder cancer. Pancreatic tail adenocarcinoma, statuspost distal pancreatectomy and splenectomy in 2018.TECHNIQUE: Volumetric CT acquisition of the abdomen and [...] 2019-02 EXAM: CT CHEST WITH UT contrast [id number] CONTRASTDATE: 03/04/2019 11:14 Physicians 11:45:0 CSTINDICATION: [...] w contrast 11:45:0 11:14 CSTINDICATION: - C25.2 [id number] 0 Malignant neoplasm of tail of pancreasADDITIONAL [...] hysicians w/wo contrast 10:50:0 Indication: - bladder 42731 0 cancerComparison: CT of the abdomen and [...] tail. This is highly suspicious for malignancy.SL: [id number]--Samc by: Willie Searsictated Date/time: 04/09/18 13:38Electronically Signed by: Willie Sears MD 04/09/1912:47FINAL REPORT [Q] CYTOLOGY, NON-PRESCHOOL ADVISER 2017-09-16 11:00:00 Test Item Value Reference Range Interpretation Comme nts CLINICAL INFORMATION (test code = See Comment N Bladder cancer CLINICAL INFORMATION) SCREENER (test code = SCREENER) See Comment N PMT, CT(ASCP)CT screening location: [place] [address], [facility] [address] PATHOLOGIST (test code = See Comment N Kirk Conte MD,Board PATHOLOGIST) Certified in An atomic [id number] [phone] (electronic sig nature) [facility][Q] NON-PRESCHOOL ADVISER, SPECIMEN [id number] 11:00:00 Test Item Value Reference Range Interpretation Comments Source (test code = See Comment N Urine Source) Gross Description See Comment 50 ml of c lear yellow (test code = Gross fluid, 1 ThinPrep. Description) Verified as to patient ID/name Tomasz ss exam(s) perform ed at: [facility] [address] [facility], [facility] [phone] Laboratory Dire ctor: PATRICIA ROBERT MD A [...] INCOR RECT, PLEASE CONTACT CLIENT SERVICES.PHONE NUMBER: [phone] [facility]
[2021-08-03] MEDS ORDERED: MORPHINE 4 MG/ML SYR ONE (10:25)
[2021-08-03] MEDS ORDERED: ONDANSETRON 4 MG/2 ML VIAL ONE (10:25)
[2021-08-03] MEDS ORDERED: NA CHLORIDE 0.9% 1,000 ML ONE (10:26)
[2021-08-03] MEDS ORDERED: NA CHLORIDE 0.9% 100 ML ONE (10:26)
[2021-08-03] MEDS ORDERED: PIPERACIL/TAZO 3.375 GM VIAL IV ONE (10:26)
[2021-08-03 11:06] LABS: Absolute Lymphocytes (CBC) 1.5 K/uL (0.7-4.9); Hematocrit 30.6 % (39.6-49.0); Lymphocytes % 46.4 % (15.3-44.8); MPV 8.7 fL (7.6-11.3); RBC Red Blood Cell Count 3.58 M/uL (4.33-5.43)
[2021-08-03 11:10] LABS: Albumin 2.7 g/dL (3.4-5.0); Bilirubin Total 0.2 mg/dL (0.2-1.0); Potassium 3.9 mmol/L (3.5-5.1)
[2021-08-03 11:54] LABS: Platelet Estimate ADEQ
[2021-08-03 11:55] LABS: Anisocytosis 1+; Blood Morphology Comment NOTED (NOT SEEN); Howell-Jolly Bodies NOTED; Macrocytosis 1+; Ovalocytes 1+
--- NOTE | 2021-08-03 12:13 | RAD REPORT ---
EXAM DESCRIPTION: CTAbdomen Pelvis W Contrast - 08/03/2021 12:02 pm CLINICAL HISTORY: Abdominal pain. LLQ abdominal pain COMPARISON: Abdomen Pelvis W Contrast dated 07/12/2021 TECHNIQUE: Biphasic CT imaging of the abdomen and pelvis was performed with 100 ml non-ionic IV cont rast. All CT scans are performed using dose optimization technique as appropriate and may include automated exposure control or mA/KV adjustment according to patient size. FINDINGS: 4 cm opacity is present in the posterior right lung base is has decreased in size mildly s abel 07/12/2021. The liver, pancreas, adrenal glands and kidneys are within normal limits. Absent spleen. No bowel obstruction, free air, free fluid or abscess. Thickening of the sigmoid colon with mild infl ammation in the left lower quadrant are multiple diverticula are present. This is likely mild/early a cute diverticulitis. In addition there is a 27 mm epiploic appendagitis also present left lower quadr ant. The appendix is normal. No evidence of significant lymphadenopathy. No suspicious bony findings. IMPRESSION: Mild/early acute diverticulitis of sigmoid colon. In addition, there is 27 mm area of ep iploic appendagitis in the left lower quadrant also. Mild decrease in size of irregular right posterior lung based consolidated lesion.
--- NOTE | 2021-08-03 15:21 | EDPHYS ---
Physician Documentation [facility] Name: Austen Patterson Age: 61 yrs Sex: Male : 1960 Arrival Date: 08/03/2021 Time: 09:54 Bed 4 Private MD: Kaiden Dean ED Physician Star Nolan HPI: 08/03 11:50 This 61 yrs old Male presents to ER via Ambulatory with complaints of Diarrhea. ma2 11:50 Associated signs and symptoms: Pertinent negatives: abdominal pain, anorexia, belching, ma2 constipation, diarrhea, dysuria, fever, flatulence, GI bleeding, hematuria, nausea, vomiting. 61-year-old patient history of diverticulitis presents with right lower quadrant abdominal pain,. Historical: - Allergies: 10:00 No Known Allergies; aa5 - PMHx: 09:58 Diabetes - NIDDM; Hypertension; Lung Cancer; pancriatic cancer; Tramatic Brain Injury; aa5 - PSHx: 09:58 pancriatic surgery; aa5 - Immunization history:: Adult Immunizations unknown. - Social history:: Smoking status: Reported history of juuling and/or vaping. - Family history:: not pertinent. ROS: 11:50 Constitutional: Negative for fever, chills, and weight loss. ma2 11:50 All other systems are negative. Exam: 11:50 Constitutional: This is a well developed, well nourished patient who is awake, alert, ma2 and in no acute distress. Neck: Trachea midline, no thyromegaly or masses palpated, and no cervical lymphadenopathy. Supple, full range of motion without nuchal rigidity, or vertebral point tenderness. No Meningismus. Chest/axilla: Normal chest wall appearance and motion. Nontender with no deformity. No lesions are appreciated. Cardiovascular: Regular rate and rhythm with a normal S1 and S2. No gallops, murmurs, or rubs. Normal PMI, no JVD. No pulse deficits. Respiratory: Lungs have equal breath sounds bilaterally, clear to auscultation and percussion. No rales, rhonchi or wheezes noted. No increased work of breathing, no retractions or nasal flaring. Abdomen/GI: Soft, non-tender, with normal bowel sounds. No distension or tympany. No guarding or rebound. No evidence of tenderness throughout. Back: No spinal tenderness. No costovertebral tenderness. Full range of motion. MS/ Extremity: Pulses equal, no cyanosis. Neurovascular intact. Full, normal range of motion. Neuro: Awake and alert, GCS 15, oriented to person, place, time, and situation. Cranial nerves II-XII grossly intact. Motor strength 5/5 in all extremities. Sensory grossly intact. Cerebellar exam normal. Normal gait. Vital Signs: 10:00 BP 125 / 83; Pulse 81; Resp 18 S; Temp 98.2(TE); Pulse Ox 99% on R/A; Weight 85.73 kg aa5 (R); Height 5 ft. 10 in. (177.80 cm) (R); 11:30 BP 105 / 65; Pulse 68; Resp 17; Pulse Ox 97% on R/A; torres 10:00 Body Mass Index 27.12 (85.73 kg, 177.80 cm) aa5 MDM: 10:04 Patient medically screened. [facility] 11:50 Differential diagnosis: Nonspecific abd pain, gastritis, viral gastroenteritis, ma2 gastroenteritis. 12:32 Data reviewed: vital signs, nurses notes. Counseling: I had a detailed discussion with [facility] the patient and/or guardian regarding: the historical points, exam findings, and any diagnostic results supporting the discharge/admit diagnosis, the presence of at least one elevated blood pressure reading (>120/80) during this emergency department visit, the need for outpatient follow up. Response to treatment: the patient's symptoms have markedly improved after treatment. 14:17 ED course: Patient has recurrent diverticulitis with appendagitis, discussed with [facility] general surgeon Dr. Mays, he advised that given the recurrence over short period of time and resistance to antibiotics to transfer to higher level of care as patient needs colorectal surgeon and this service is not available in our hospital. Case discussed and accepted with Dr. Sanchez colorectal surgeon. . 15:20 ED course: accepted by dr. Chaudhry er doc at [facility]'. [facility] 08/03 10:15 Order name: CBC with Diff; Complete Time: 12:29 [facility] 08/03 10:15 Order name: CMP; Complete Time: 11:43 [facility] 08/03 10:15 Order name: Lipase; Complete Time: 11:43 [facility] 08/03 10:15 Order name: Blood Culture Adult (2) [facility] 08/03 11:55 Order name: Manual Differential; Complete Time: 12:29 [facility] 08/03 10:15 Order name: CT Abd/Pelvis - IV Contrast Only; Complete Time: 12:29 [facility] 08/03 10:15 Order name: IV Saline Lock; Complete Time: 10:32 [facility] 08/03 10:15 Order name: Labs collected and sent; Complete Time: 10:32 [facility] 08/03 13:55 Order name: SARS-COV-2 RT PCR (Document "Date of Onset" if Symptomatic) eb Administered Medications: 10:32 Drug: Zofran (Ondansetron) 4 mg Route: IVP; Site: right forearm; torres 10:34 Follow up: Response: No adverse reaction torres 10:33 Drug: NS 0.9% 1000 ml Route: IV; Rate: 1 bolus; Site: right antecubital; torres 10:33 Drug: morphine 4 mg Route: IVP; Infused Over: 4 mins; Site: right forearm; torres 10:36 Follow up: Response: No adverse reaction torres 11:02 Drug: Zosyn (piperacillin-tazobactam) 3.375 grams Route: IVPB; Infused Over: 60 mins; torres Site: right forearm; Disposition Summary: 08/03/21 15:21 Transfer Ordered Transfer Location: Other Acute Care Facility ma2 Reason: Higher level of care ma2 Condition: Stable ma2 Problem: new ma2 Symptoms: are unchanged ma2 Accepting Physician: dr. Hill/ Dr. Gallardo [facility](08/03/21 16:25) torres Diagnosis - Diverticulitis of large intestine without perforation or abscess without bleeding ma2 Forms: - Medication Reconciliation Form ma2 - SBAR form ma2 Signatures: Dispatcher [employer] EDJune Gongora RN RN aa5 Star Nolan MD MD ma2 Nanda Frausto Heather, RN RN torres Corrections: (The following items were deleted from the chart) 15:38 15:21 dr. Hill pr2 eb 16:25 15:38 dr. Hill/ Dr. Gallardo [facility] eb torres
--- NOTE | 2021-08-03 15:21 | ER ---
Nurse's Notes [facility] Name: Austen Patterson Age: 61 yrs Sex: Male : 1960 Arrival Date: 08/03/2021 Time: 09:54 Bed 4 Private MD: Kaiden Dean Diagnosis: Diverticulitis of large intestine without perforation or abscess without bleeding Presentation: 08/03 10:00 Chief complaint: Pt's states "about 2 or 3 weeks ago he had diverticulitis and a aa5 small perforation that resolved by itself". Pt states "I think my diverticulitis is back again". Pt c/o lower abd cramping that is intermittent, denies pain at this time, reports diarrhea x 3 days ago, denies vomiting. 10:00 Onset of symptoms was July 2021. aa5 10:00 Acuity: JAREK 3 aa5 10:00 Coronavirus screen: At this time, the client does not indicate any symptoms associated aa5 with coronavirus-19. 10:00 Method Of Arrival: Ambulatory aa5 10:00 Ebola Screen: No symptoms or risks identified at this time. Initial Sepsis Screen: Does aa5 the patient meet any 2 criteria? No. Patient's initial sepsis screen is negative. Does the patient have a suspected source of infection? No. Patient's initial sepsis screen is negative. Risk Assessment: Do you want to hurt yourself or someone else? Patient reports no desire to harm self or others. Triage Assessment: 10:12 General: Appears in no apparent distress. Behavior is calm, cooperative. torres Historical: - Allergies: 10:00 No Known Allergies; aa5 - PMHx: 09:58 Diabetes - NIDDM; Hypertension; Lung Cancer; pancriatic cancer; Tramatic Brain Injury; aa5 - PSHx: 09:58 pancriatic surgery; aa5 - Immunization history:: Adult Immunizations unknown. - Social history:: Smoking status: Reported history of juuling and/or vaping. - Family history:: not pertinent. Screenin:11 Abuse screen: Denies threats or abuse. Denies injuries from another. Nutritional torres screening: No deficits noted. Tuberculosis screening: No symptoms or risk factors identified. Fall Risk None identified. Assessment: 10:11 Pain: Complains of pain in abdomen. GI: Reports diarrhea. torres 12:49 Reassessment: Initiated transfer with [facility] Diverticulitis with appendagitis. ss Awaiting for call back from transfer center. Vital Signs: 10:00 BP 125 / 83; Pulse 81; Resp 18 S; Temp 98.2(TE); Pulse Ox 99% on R/A; Weight 85.73 kg aa5 (R); Height 5 ft. 10 in. (177.80 cm) (R); 11:30 BP 105 / 65; Pulse 68; Resp 17; Pulse Ox 97% on R/A; torres 10:00 Body Mass Index 27.12 (85.73 kg, 177.80 cm) aa5 ED Course: 09:54 Patient arrived in ED. mr 09:54 Kaiden eDan MD is Private Physician. mr 09:58 Arm band placed on. aa5 10:01 Diamond Cox, TAE is Primary Nurse. torres 10:04 Star Nolan MD is Attending Physician. ma2 10:08 Triage completed. aa5 10:11 Patient has correct armband on for positive identification. Bed in low position. torres 10:11 No provider procedures requiring assistance completed. torres 12:04 CT Abd/Pelvis - IV Contrast Only In Process Unspecified. EDMS 12:49 transfer initiated by Linda Manzanares with Susan from the [facility] at the request of the family. 13:[address] Ricardo the colorectal surgeon financial institution president with [facility] with Dr. francisco Nolan for patient transfer consultation. 13:16 per Susan at the [facility] patient has been denied in transfer eb due to doctor declining the patient. 14:02 initiated a transfer with Arturo from the [facility] transfer center/ per Arturo they will have to decline the patient in transfer due to being at capacity. 14:22 initiated a transfer with Jacy from the [facility] transfer center. 15:20 administrative approval given by Jacy Desai Rn/ patient has been accepted to [facility] ER/ Dr. Hoang has accepted the patient in transfer/ report to be called to [phone]. 16:24 Patient transferred, IV remains in place. torres Administered Medications: 10:32 Drug: Zofran (Ondansetron) 4 mg Route: IVP; Site: right forearm; torres 10:34 Follow up: Response: No adverse reaction torres 10:33 Drug: NS 0.9% 1000 ml Route: IV; Rate: 1 bolus; Site: right antecubital; torres 10:33 Drug: morphine 4 mg Route: IVP; Infused Over: 4 mins; Site: right forearm; torres 10:36 Follow up: Response: No adverse reaction torres 11:02 Drug: Zosyn (piperacillin-tazobactam) 3.375 grams Route: IVPB; Infused Over: 60 mins; torres Site: right forearm; Medication: 10:11 VIS not applicable for this client. Outcome: 15:21 ER care complete, transfer ordered by . oliver 16:24 Transferred by ground EMS Note: [facility] 16:24 Condition: good 16:24 Discharge instructions given to 16:24 Discharge instructions given to patient, family, Instructed on the need for transfer. 16:25 Patient left the ED. torres Signatures: Dispatcher [employer] RONAR Aixa CalderónJune RN RN aa5 Linda Jett RN RN Star Nolan MD MD ma2 Nanda Frausto Heather, RN RN torres
[2021-08-03 17:01] VITALS: TEMP 98.2
[2021-08-03 17:02] VITALS: BP 105/65; O2SAT 97
== END 2021-08-03 16:25 ==
LOC: ER 09:51
DX: K57.32 Diverticulitis of large intestine without perforation or abscess without bleeding (principal); E11.9 Type 2 diabetes mellitus without complications; I10 Essential (primary) hypertension; Z85.118 Personal history of other malignant neoplasm of bronchus and lung; F17.290 Nicotine dependence, other tobacco product, uncomplicated; Z20.822 Contact with and (suspected) exposure to COVID-19
CPT/HCPCS: 87040 ×2; 85025; 36415; 87205 ×2; 83690; 80053; 74177; U0003; Q9967; J2543; J7030; J2405; 96374; 96375; 99285

== ENCOUNTER 2021-11-13 06:30 | Day surgery (SDC) | payer BC ==
[2021-11-13] MEDS ORDERED: NA CHLORIDE 0.9% 1,000 ML ONE (06:49)
[2021-11-13] MEDS ORDERED: propofoL 200 MG/20 ML VIAL IV ONE (07:49)
[2021-11-13] MEDS ORDERED: LIDOCAINE 1% MPF 5 ML VIAL ONE (07:50)
--- NOTE | 2021-11-13 08:27 | ENDO RPT ---
[address], [address] COLONOSCOPY PROCEDURE REPORT EXAM DATE: 11/13/2021 PATIENT NAME: Austen Patterson MR #: [id number] BIRTHDATE: 1960 ATTENDING: Stepan Vargas Dr STATUS: outpatient JAVASCRIPT APPLICATION DEVELOPER: Julisa Nagel RN and Shannon Lawton INDICATIONS: The patient is a 61 yr old Male here for a colonoscopy due to abdominal pain, change in bowel habits, constipation, and diverticulitis PROCEDURE PERFORMED: Colonoscopy with biopsy MEDICATIONS: Per Anesthesia. ESTIMATED BLOOD LOSS: Minimal CONSENT: The patient understands the risks and benefits of the procedure and understands that these risks include, but are not limited to: sedation, allergic reaction, infection, perforation and/or bleeding. Alternative means of evaluation and treatment include, among others: physical exam, x-rays, and/or surgical intervention. The patient elects to proceed with this endoscopic procedure. DESCRIPTION OF PROCEDURE: During intra-op preparation period all mechanical medical equipment was checked for proper function. Hand hygiene and appropriate measures for infection prevention was taken. Procedure, possible complications, alternatives including, but not limited to possibility of bleeding, perforation, tear, infection, sepsis, need for surgery, need for blood transfusion, were explained to the patient. After the risks, benefits and alternatives of the procedure were thoroughly explained, Informed consent was verified, confirmed and timeout was successfully executed by the treatment team. The patient was placed in the left lateral position. A digital rectal exam was performed and revealed an enlarged prostate. After appropriate level of anesthesia, the scope was passed. The EC-[id number] ([id number]) endoscope was introduced through the anus and advanced to the terminal ileum which was intubated for a short distance. The quality of the prep was fair. The instrument was then slowly withdrawn as the colon was fully examined. Scope withdrawal time was 8 minutes. COLON FINDINGS: Mild diverticulosis was noted throughout the entire examined colon. No bleeding was noted from the diverticulosis. Diverticulum with small amount of heme at opening and surrounding inflammation / erythema / edema / loss of vascular pattern 4 cm area half circumferential was found in the sigmoid colon, s/p biopsy. It's appearance was suggestive of diverticulitis. The opening appeared congested. The opening was small. Retroflexed views revealed small hemorrhoids. The scope was then completely withdrawn from the patient and the procedure terminated. ADVERSE EVENTS: There were no complications. IMPRESSIONS: 1. Mild diverticulosis throughout the entire examined colon 2. Diverticulum with small amount of heme at opening and surrounding inflammation / erythema / edema / loss of vascular pattern 4 cm area half circumferential in the sigmoid colon, s/p biopsy 3. Intubation to terminal ileum RECOMMENDATIONS: 1. await biopsy results 2. yearly hemoccult starting in 4 years RECALL: Return in 10 year(s) for Colonoscopy. Stepan Vargas Dr eSigned: Stepan Vargas Dr 11/13/2021 8:27 AM cc: Kaiden Dean CPT CODES: ICD9 CODES: PATIENT NAME: Austen Patterson MR#: [id number]
[2021-11-13 09:01] VITALS: O2SAT 100
[2021-11-13 09:04] VITALS: BP 117/50; TEMP 96.9
== END 2021-11-13 08:54 | disposition home or self-care (01) ==
LOC: OR 06:30
PROVIDERS: ATTEND Internal Medicine Gastroenterology
PROC: 0DBN8ZX Excision of Sigmoid Colon, Via Natural or Artificial Opening Endoscopic, Diagnostic (ICD-10-PCS; principal; 2021-11-13 07:30)
DX: K62.89 Other specified diseases of anus and rectum (principal); R10.31 Right lower quadrant pain; R10.32 Left lower quadrant pain; K59.00 Constipation, unspecified
CPT/HCPCS: 82947; 88305; 45380; J2704; J2001; J7030

== ENCOUNTER 2022-02-23 10:58 | Emergency (ER) | payer BC ==
--- OUTSIDE RECORDS SUMMARY | 2022-02-23 11:02 | XMS REPORT | Continuity of Care Document ---
:1960 Author Organization [facility] t Address [address] [place] [address] Care Team Providers Name Role Phone DianneKaiden Primary Care Physician MIRANDA HARGROVE Attending Clinician Unavailable MIRANDA HARGROVE Attending Clinician Unavailable JASSI CLARK Attending Clinician Unavailable CASSIDY HERNANDEZ Attending Clinician Unavailable MARIAJOSE CHOPRA Attending Clinician Unavailable MARIAJOSE CHOPRA Attending Clinician Unavailable Nilton Wilson Attending Clinician Unavailable Cassidy Hernandez MD Attending Clinician MIRANDA HARGROVE M.D. Attending Clinician Unavailable MICHELLE GÓMEZ M.D. Attending Clinician Unavailable [facility] Attending Clinician Unavailable LALIT MOMIN M.D. Attending Clinician Unavailable Nilton Wilson Admitting Clinician Unavailable Payers Payer Name Policy Type Policy Number Effective Date Expiration Date Rigoberto cabrera [facility] [id number] 2018 2018 00:00:00 CHOICE/CHOICE 00:00:00 PLUS [id number] PPO [id number] 2020 2024 00:00:00 00:00:00 Problems Condition Condition [...] mass Physici ans Allergies, Adverse Reactions, Alerts Allergy Allergy Status Severity Reaction(s) Onset Inactive Treating Comm ents Source Name Type Date Date Clinician No Known DA Active U [facility] 08-03 [facility] 00:00: [facility] 00 [facility] Social History Social Habit Start Date Stop Date Quantity Comments Source Sex Assigned At [birth year] [facility] 00:00:00 00:00:00 Smoking Status Start Date Stop Date Source Tobacco smoking consumption unknown [facility] Medications Ordered Filled Start Stop Current [...] 30.67 [facility] 2021-01-21 17:38:33 180.3 [facility] weight 2021-01-21 17:38:33 99.7 [facility] BMI 2021-01-21 17:38:33 30.67 kg/m2 [facility] height 2021-01-21 17:38:33 180.3 cm [facility] weight 2021-01-21 17:38:33 99.7 [facility] BMI 2021-01-21 17:38:33 30.67 kg/m2 [facility] height 2021-01-21 17:38:33 180.3 cm [facility] weight 2021-01-21 17:38:33 99.7 [facility] BMI 2021-01-21 17:38:33 30.67 kg/m2 [facility] height 2020-11-26 16:21:31 180.3 cm [facility] weight 2020-11-26 16:21:31 102.6 kg [facility] BMI 2020-11-26 16:21:31 31.56 kg/m2 [facility] height 2020-11-26 16:21:31 180.3 cm [facility] weight 2020-11-26 16:21:31 102.6 kg [facility] BMI 2020-11-26 16:21:31 31.56 kg/m2 [facility] height 2020-11-26 16:21:31 180.3 cm [facility] weight 2020-11-26 16:21:31 102.6 kg [facility] BMI 2020-11-26 16:21:31 31.56 kg/m2 [facility] Body height 2020-11-26 16:21:31 180.3 cm [facility] weight 2020-11-26 16:21:31 102.6 kg [facility] BMI 2020-11-26 16:21:31 31.56 kg/m2 [facility] weight 2020-07-09 17:22:07 102.3 kg [facility] BMI 2020-07-09 17:22:07 31.47 kg/m2 [facility] height 2020-07-09 17:22:07 180.3 cm [facility] height 2020-07-09 17:22:07 180.3 cm [facility] weight 2020-07-09 17:22:07 102.3 kg [facility] BMI 2020-07-09 17:22:07 31.47 kg/m2 [facility] Body weight 2020-07-09 17:22:07 102.3 kg [facility] BMI 2020-07-09 17:22:07 31.47 kg/m2 [facility] Body height 2020-07-09 17:22:07 180.3 cm [facility] Body height 2020-07-09 17:22:07 180.3 cm [facility] Body weight 2020-07-09 17:22:07 102.3 kg [facility] BMI 2020-07-09 17:22:07 31.47 kg/m2 [facility] BP Systolic 2018-03-16 13:50:00 136 mm[Hg] [facility] LUE[facility] Position: Sitting BP Diastolic 2018-03-16 13:50:00 88 mm[Hg] [facility]: LUE; [facility] Position: Sitting Height 2018-03-16 13:50:00 [...] Procedure Date / Time Performed Performing Clinician [facility] e CT ABDOMEN PELVIS W CONTRAST 2020-10-01 16:04:55 Miranda Hargrove [facility] CT ABDOMEN PELVIS W CONTRAST 2020-10-01 16:04:55 Delvin, [place] [facility] CT CHEST W CONTRAST 2020-10-01 16:04:44 [facility] [place] [facility] CHEST W CONTRAST 2020-10-01 16:04:44 [facility] [place] [facility] Abdomen/Pelvis w/wo 2018-03-16 00:00:00 [facility] contrast [id number] [QLH] CULTURE, URINE, 2018-02-19 00:00:00 [facility] ROUTINE [Q] BLADDER CANCER, FISH 2018-01-19 00:00:00 [facility] [Q] CYTOLOGY, NON-BIT TAPPER 2017-05-12 00:00:00 [facility] Start End Encounter Admission Attending Care Care Encounter Source Date/Time Date/Time Type Type Clinicians Facility Department ID 2022-01-28 Outpatient [facility] [id number] [place] 14:00:38 [id number] [facility] 2022-01-14 Outpatient [facility] [id number] [place] 15:57:36 [id number] [facility] 2021-12-18 Outpatient [facility] [id number] [place] 11:52:30 [id number] [facility] 2021-12-03 Outpatient [facility] [id number] [place] 16:14:06 [id number] [facility] 2020-10-05 Outpatient DELVIN, [place] [facility] [id number] [place] 01:05:36 [facility] 2019-09-22 Outpatient DELVIN, [place] [facility] [address] [facility] 10:45:51 2022-01-16 2022-02-14 Outpatient DELVIN, [place] [facility] [id number] 09:06:00 23:59:00 2021-12-05 2022-01-03 Outpatient DELVIN, [place] [facility] [id number] [facility] 10:22:00 23:59:00 2021-11-30 2021-12-01 Emergency E LARIMORE, [facility] [id number] 12:52:00 02:40:00 JASSI 2021-10-31 2021-11-29 Outpatient DELVIN, P[place] [facility] ISABELA [id number] [facility] 14:17:00 23:59:00 2021-11-21 2021-11-21 Outpatient DELVIN, [place] [facility] [id number] [place] 11:00:00 11:00:00 [facility] 2021-10-18 2021-11-16 Out[facility] AMSBAUGH, [facility] [id number] [facility] 15:51:00 23:59:00 CASSIDY 2021-11-14 2021-11-14 Outpatient KEYSHA, [facility] [id number] [place] 15:00:00 [facility]:00:[facility] 2021-10-03 2021-11-01 Outpatient DELVIN, [place] [facility] [id number] [facility] 08:49:00 23:59:00 2021-10-24 2021-10-24 Outpatient DELVIN, [place] [facility] [id number] [place] 14:20:00 14:20:00 [facility] 2021-10-23 2021-10-23 Outpatient KEYSHA, [facility] [id number] [place] 14:00:00 14:00:00 [facility] 2021-09-11 2021-10-10 [id number] 13:05:00 23:59:00 MARIAJOSE 2021-09-10 2021-10-09 Out[facility] LAV[facility]BALUISA, [facility] [id number] [facility] 14:35:00 23:59:00 CASSIDY 2021-09-19 2021-09-19 Outpatient DELVIN, [place] [facility] [id number] [place] 11:00:00 11:00:00 [facility] 2021-09-11 2021-09-11 Outpatient KEYSHA, [facility] [id number] [place] 13:00:00 13:00:00 MARIAJOSE [facility] 2021-08-08 2021-09-06 [facility] [id number] [facility] 08:58:00 23:59:00 2021-08-22 2021-08-22 Outpatient DELVIN, [place] [facility] [id number] [place] 10:00:00 10:00:00 [facility] 2021-08-08 2021-08-08 Outpatient DELVIN, [place] [facility] [id number] [place] 10:20:00 10:20:00 [facility] 2021-08-07 2021-08-07 Outpatient KEYSHA, [facility] [id number] [place] 14:30:00 14:30:00 MARIAJOSE [facility] 2021-08-03 2021-08-05 Inpatient EM Wilson, [facility] [id number] [facility] 17:48:00 14:46:00 Nilton 70 [facility] are [facility] 2021-08-03 2021-08-05 Inpatient EM Wilson, [facility] [id number] [facility] 17:48:00 14:46:00 Nilton [id number] [facility] are [facility] 2021-06-27 2021-07-26 Outpatient KEYSHA, [facility] [id number] M[facility] 09:10:00 23:59:00 MARIAJOSE 2021-07-25 2021-07-25 Outpatient DELVIN, [place] [facility] [id number] [place] 15:20:00 15:20:00 [facility] 2021-07-03 2021-07-03 Outpatient KEYSHA, [facility] [id number] [place] 13:00:00 13:00:00 MARIAJOSE [facility] 2021-05-30 2021-06-28 [facility]MSBAUGH[facility] [id number] [facility] 13:11:00 23:59:00 CASSIDY 2021-06-27 2021-06-27 Outpatient DELVIN, [facility] [id number] [place] 09:40:00 09:40:00 [facility] 2021-05-15 2021-06-13 Outpatient DEL[facility]IN, [place] [facility] [id number] [facility] 10:15:00 23:59:00 2021-05-21 2021-05-21 Telephone Yolanda, [facility] [id number] [place] 00:00:00 00:00:[address] [id number] [facility] [id number] 2021-03-18 2021-04-16 Outpatient DELVIN, [place] [facility] [id number] [facility] 10:24:00 23:59:00 2021-04-10 2021-04-10 Outpatient DELVIN, [place] [facility] HH [id number] M[facility] 07:58:00 17:45:00 2021-01-21 2021-02-15 Outpatient DELVIN, [place] [facility] [id number] M[facility] 11:26:00 18:00:00 2021-01-18 2021-01-18 EXT MHH OP Delvin, [place] EXT MSRDP [id number] [place] 00:00:00 00:00:00 LOCATION [id number] H ealth [id number] [id number] 2021-01-18 2021-01-18 EXT MHH OP Delvin, [place] EXT MSRDP [id number] [place] 00:00:00 00:00:00 LOCATION [id number] H ealth [id number] [id number] 2020-11-26 2020-11-26 Outpatient DELVIN, [place] [facility] HH [id number] MHHH 10:57:00 10:57:00 2020-11-23 2020-11-23 EXT MHH OP Delvin, [place] EXT MSRDP [id number] [place] 00:00:00 00:00:00 LOCATION [id number] H ealth [id number] [id number] 2020-11-23 2020-11-23 EXT MHH OP Delvin, [place] EXT MSRDP [id number] [place] 00:00:00 00:00:00 LOCATION [id number] H ealth [id number] [id number] 2020-10-01 2020-10-30 Outpatient DELVIN, [place] [facility] [id number] MHHH 11:23:00 23:59:00 2020-09-28 2020-09-28 EXT MHH OP EXT MSRDP [id number] [place] 00:00:00 00:00:00 LOCATION [id number] H ealth [id number] [id number] 2020-09-28 2020-09-28 EXT MHH OP EXT MSRDP [id number] [place] 00:00:00 00:00:00 LOCATION [id number] H ealth [id number] [id number] 2020-07-09 2020-08-07 Outpatient DELVIN, [place] [facility] [id number] MHHH 12:05:00 23:59:00 2020-07-09 2020-07-09 EXT MHH OP Delvin, [place] EXT MSRDP 1.2.840.11 [id number] [place] 00:00:00 00:00:00 LOCATION [id number] H ealth [id number] [id number] 2020-07-09 2020-07-09 EXT MHH OP Delvin, [place] EXT MSRDP 1.2.840.11 [id number] [place] 00:00:00 00:00:00 LOCATION [id number] H ealth [id number] [id number] 2020-04-16 2020-05-15 Outpatient DELVIN, [place] [facility] [id number] MHHH 11:53:00 23:59:00 2020-01-17 2020-02-15 Outpatient DELVIN, [place] [facility] M[facility]H [id number] MHHH 10:36:00 23:59:00 2019-07-06 2019-07-06 Outpatient DELVIN, [place] [facility] M[facility] [id number] MHHH 10:36:00 10:36:00 2019-06-08 2019-06-08 Appointmen MIRANDA HARGROVE, OWEN UTP [id number] [place] 10:45:00 10:45:00 t; Amber HARGROVE i, ans M.D. 2019-04-14 2019-04-14 Outpatient DELVIN, [place] [facility] M[facility] [id number] MHHH 10:29:00 10:29:00 2019-02-17 2019-02-17 Appointmen MIRANDA HARGROVE UTP UTP [id number] [place] 11:00:00 11:00:00 t; Amber HARGROVE Physic kian Blevins M.D. 2019-02-17 2019-02-17 Outpatient [facility] [id number] MH 09:20:00 09:20:00 2019-02-03 2019-02-03 Outpatient MH [facility] [id number] MHHH 09:58:00 09:58:00 2019-01-20 2019-01-20 Appointmen MIRANDA HARGROVE, UTP UTP [id number] [place] 11:30:00 11:30:00 t; Amber HARGROVE i, ans M.D. 2019-01-06 2019-01-06 Appointmen MIRANDA HARGROVE, UTP UTP [id number] [place] 09:20:00 09:20:00 t; Amber HARGROVE i, ans M.D. 2018-12-23 2018-12-23 Appointmen MIRANDA HARGROVE, UTP UTP [id number] [place] 10:30:00 10:30:00 t; Amber HARGROVE i, ans M.D. 2018-12-23 2018-12-[address] [facility] ISABELA [id number] MHHH 09:50:00 09:50:00 2018-12-09 2018-12-09 Appointmen MIRANDA HARGROVE, UTP UTP [id number] [place] 10:45:00 10:45:00 t; Amber HARGROVE i, ans M.D. 2018-12-02 2018-12-02 Appointmen MIRANDA HARGROVE, UTP UTP [id number] [place] 11:00:00 11:00:00 t; Amber HARGROVE Physic i kian JEAN M.D. 2018-11-11 2018-11-11 Appointmen DELVIN PUTRADHA, UTP UTP [id number] [place] 12:30:00 12:30:00 t; Amber HARGROVE i, ans M.D. 2018-11-11 2018-11-11 [facility] [id number] M[facility] 10:13:00 10:13:00 2018-09-30 2018-09-30 [facility] [id number] MHH 10:29:00 10:29:00 2018-09-30 2018-09-30 Appointmen DELVIN, PUTAO, UTP UTP [id number] [place] 09:00:00 09:00:00 t; Amber HARGROVE i, ans M.D. 2018-09-17 2018-09-17 Appointmen DALIA, UTP UTP [id number] [place] 07:30:00 07:30:00 t; MICHELLE GÓMEZ Physi ci CURTIS, M.D. ans M.D. 2018-09-17 2018-09-17 [facility] ISABELA [id number] [facility] 14:53:00 05:39:00 2018-08-26 2018-08-26 Appointmen DELVIN, PUTAO, UTP UTP [id number] [place] 11:00:00 11:00:00 t; Amber HARGROVE i kian JEAN M.D. 2018-08-23 2018-08-23 Appointmen DELVIN, [place], UTP UTP [id number] [place] 11:45:00 11:45:00 t; Amber HARGROVE i, ans M.D. 2018-08-12 2018-08-12 Appointmen DELVIN, P[place], UTP UTP [id number] [place] 11:30:00 11:30:00 t; Amber HARGROVE i, ans M.D. 2018-08-12 2018-08-12 [facility] [id number] [facility] 08:56:00 08:56:00 2018-08-05 2018-08-05 Appointmen DLEVIN, PUTAO, UTP UTP [id number] [place] 11:00:00 11:00:00 t; Amber HARGROVE i PUTkian GARCIA M.D. 2018-07-29 2018-07-29 Appointmen DELVIN, [place], UTP UTP [id number] [place] 13:00:00 13:00:00 t; Amber HARGROVE i kian JEAN M.D. 2018-07-15 2018-07-15 Appointmen DELVIN, [place], UTP UTP [id number] [place] 09:45:00 09:45:00 t; Amber HARGROVE i kian JEAN M.D. 2018-07-08 2018-07-08 Appointmen DELVIN, [place], UTP UTP [id number] [place] 09:45:00 09:45:00 t; Amber HARGROVE Physic i PUTAOkian M.D. 2018-07-08 2018-07-08 Outpatient [facility] [id number] [facility] 09:16:00 09:16:00 2018-07-01 2018-07-01 Appointmen DELVIN, [place], UTP UTP [id number] [place] 11:00:00 11:00:00 t; Amber HARGROVE Physic i PUTAOkian M.D. 2018-06-24 2018-06-24 Appointmen DELVIN, PUT[place], UTP UTP [id number] [place] 11:00:00 11:00:00 t; Amber HARGROVE Physic i PUTAOkian M.D. 2018-06-17 2018-06-17 Appointmen DELVIN, PUT[place], UTP UTP [id number] [place] 10:30:00 10:30:00 t; Amber HARGROVE Physic i PUTkian GARCIA M.D. 2018-06-10 2018-06-10 Appointmen DELVIN, P[place], UTP UTP [id number] [place] 14:45:00 14:45:00 t; Amber HARGROVE Physic i PUTAOkian M.D. 2018-06-03 2018-06-03 Appointmen DELVIN, P[place], UTP UTP [id number] [place] 11:00:00 11:00:00 t; Amber HARGROVE Physic i PUTkian GARCIA M.D. 2018-06-03 2018-06-03 Outpatient [facility] [id number] [facility] 08:37:00 08:37:00 2018-05-20 2018-05-20 Appointmen DELVIN, P[place], UTP UTP [id number] [place] 14:00:00 14:00:00 t; Amber HARGROVE Physic i PUTAOkian M.D. 2018-05-06 2018-05-06 Appointmen DELVIN, P[place], UTP UTP [id number] [place] 10:00:00 10:00:00 t; Amber HARGROVE Physic i PUTAOkian M.D. 2018-04-29 2018-04-29 Appointmen DELVIN, P[place], UTP UTP [id number] [place] 11:00:00 11:00:00 t; Amber HARGROVE i, ans M.D. 2018-04-29 2018[facility] UTP [id number] [place] 08:00:00 08:00:00 t; [facility], Physic i GASTRO ans 2018-03-16 2018-03-16 [facility] [id number] [place] 14:00:00 14:00:00 t; Kaitlin COHN M.D. ans STEVEN, M.D. 2018-02-24 2018-02-24 [facility] [id number] [place] 09:00:00 09:00:00 t; Skyler COHN i, M.D. ans STEVEN, M.D. 2018-01-19 2018-01-19 [facility] [id number] [place] 13:00:00 13:00:00 t; Kaitlin COHN M.D. ans STEVEN, M.D. 2017-09-15 2017-09-15 [facility] [id number] [place] 14:00:00 14:00:00 t; Kaitlin COHN M.D. ans STEVEN, M.D. 2017-08-11 2017-08-11 [facility] [id number] [place] 10:00:00 10:00:00 t; Skyler COHN i, M.D. ans STEVEN, M.D. 2017-05-12 2017-05-12 [facility] [id number] [place] 10:00:00 10:00:00 t; Kaitlin COHN M.D. ans STEVEN, M.D. 2017-01-20 2017-01-20 [facility] [id number] [place] 09:15:00 09:15:00 t; Skyler COHN i, M.D. ans STEVEN, M.D. 2016-12-16 2016-12-16 [facility] [id number] [place] 13:00:00 13:00:00 t; Skyler COHN i, M.D. ans STEVEN, M.D. Results Test Description Test Time Test Comments Results Result Comments Source GLUBED 2021-08-05 10:23:00 Test Item Value Reference Range Interpretation Comme nts GLUBED (test code = GLUBED) 199 MG/DL 70-105 H [id number] 08:04:00 Test Item Value Reference Range Interpretation Comments GLUBED (test code = GLUBED) 109 MG/DL 70-105 H CBC W/MANUAL [id number] 07:23:00 Test Item Value Reference Range Interpretation Comments WHITE BLOOD CELL (test code = 7.8 x10 3/uL 4.8-10.8 N WBC) RED BLOOD CELL (test code = 3.19 x10 6/uL 4.70-6.10 L RBC) HEMOGLOBIN (test code = HGB) 8.9 g/dL 14.0-18.0 L HEMATOCRIT (test code = HCT) 26.9 % 42.0-52.0 L MEAN CELL VOLUME (test code = 84.3 fL 80.0-94.0 N MCV) MEAN CELL HGB (test code = MCH) 27.9 pg 27-31 N MEAN CELL HGB CONCENTRATION 33.1 G/DL 33-36.5 N (test code = MCHC) RED CELL DISTRIBUTION WIDTH 18.6 % 12.9-16.9 H (test code = RDW) PLATELET COUNT (test code = 230 x10 3/uL 150-440 N PLT) MEAN PLATELET VOLUME (test code 11.1 fL 8.9-12.4 N = MPV) TOTAL CELLS COUNTED (test code 100 #CELLS = TCC) SEGMENTED NEUTROPHILS (test 49 % 49-71 N code = SEG) LYMPHOCYTE (test code = LYMPH) 33 % 20-40 N BAND NEUTROPHIL (test code = 1 % 0-5 N BAND) MONOCYTE (test code = MON) 10 % 3-8 H EOSINOPHIL (test code = EOS) 7 % 1-5 H NUCLEATED RED BLOOD CELL (test 8 % 0-1 H code = NRBC) HYPOCHROMIA (test code = HYPO) 1+ NONE SEEN A ANISOCYTOSIS (test code = 1+ NONE SEEN A ANISO) BASIC METABOLIC [id number] 04:55:00 Test Item Value Reference Range Interpretation Comments SODIUM (test code 145 mmol/L 136-145 N Please not e: New = NA) Reference Range Mar 2020 POTASSIUM (test 3.1 mmol/L 3.5-5.1 L code = K) CHLORIDE (test 111 mmol/L 98-107 H Please note: New code = CL) Reference Range Mar 2020 CARBON DIOXIDE 27 mmol/L 20-31 N Please note: New (test code = CO2) Reference Range Mar 2020 GLUCOSE (test code 104 mg/dL 74-106 N Please no te: New = GLU) Reference Range Mar 2020 BLOOD UREA 6 mg/dL 9-23 L Please note: Ne w NITROGEN (test Reference Ran ge Feb code = BUN) 2020 GLOMERULAR >=60 max >60 Units are FILTRATION RATE estimate mL/min mL/min/1. 73m2 The (test code = GFR) estimated glomerular filtration rate is computed usingpatient ra ce, age (>18), sex, and serum creatinin e. If anyof the neede d data elements a re missing the Laboratory ahsan ot compute an estimation of t he glomerular filtration rate . CREATININE (test 0.70 mg/dL 0.70-1.30 N Please note : New code = CREAT) Reference Rang e Mar 2020 CALCIUM (test code 8.7 mg/dL 8.7-10.4 N Please no te: New = CA) Reference Range Mar 2020 [id number] 04:55:00 Test Item Value Reference Range Interpretation Comments MAGNESIUM (test code = 1.5 mg/dL 1.6-2.6 L Pleas e note: New MAG) Reference Range Mar 2020 [id number] 22:41:00 Test Item Value Reference Range Interpretation Comments GLUBED (test code = GLUBED) 121 MG/DL 70-105 H [id number] 17:27:00 Test Item Value Reference Range Interpretation Comments GLUBED (test code = GLUBED) 185 MG/DL 70-105 H [id number] 11:53:00 Test Item Value Reference Range Interpretation Comments GLUBED (test code = GLUBED) 136 MG/DL 70-105 H [id number] 07:34:00 Test Item Value Reference Range Interpretation Comments GLUBED (test code = GLUBED) 92 MG/DL 70-105 N [id number] 20:30:00 Test Item Value Reference Range Interpretation Comments GLUBED (test code = GLUBED) 105 MG/DL 70-[address] Abdomen/Pelvis w contrast [id number] 11:30:00EXAM: CT ABDOMEN AND PELVIS WITH CONTRASTDATE: 05/30/2019 11:32 AM CDTINDICATION: - C25.2 Malignant neoplasm of tail of pancreasADDITIONAL INFORMATION: None.COMPARISON: History of bladder cancer. Pancreatic tail adenocarcinoma, statuspost distal pancreatectomy and splenectomy in 2019.TECHNIQUE: Volumetric CT acquisition of the abdomen and pelvis after theintravenous administration contrast. Axial, coronal and sagittalreconstructions.Postcontrast phases: Venous.IV contrast: 100 cc of Omnipaque 350Oralcontrast: None.DLP: 1550.6 mGy*cmFINDINGS: Lines and tubes: None.Lower thorax: No pleural effusions.No pericardial effusion. No obvious lungnodules at the bases.Liver: Normal. Stable hepatic segment 7subcentimeter hypodensity.Biliary tree: No intra- or extrahepatic biliary ductal dilation.Gallbladder: Gallbladder is unremarkable.Pancreas: Status post distal pancreatectomy with expected postsurgicalchanges.No obvious recurrent soft tissue in the surgical bed.Spleen: Status post splenectomy.Adrenals: Normal. No adrenal nodules.Kidneys and ureters: Normal. No obvious focal lesions. No nephrolithiasis. Nohydronephrosis. No ureteral dilations. Both kidneys are normally enhancing withprompt excretion.Urinary bladder: Urinary bladder is mildly distended with diffuse wallthickening. Given the inadequate distention, evaluation is limited.Prostate and seminal vesicles: Prostate and seminal vesicles areunremarkable.Stomach: Stomach is well distended. There is small [...] in the bones.Abdominal wall: No obvious ventral herni as.Soft tissues: No obvious focal masses or fluid collections.IMPRESSION: 1. Status post distal pancreectomy and splenectomy. No recurrent soft tissuemass in the surgical bed.2. No metastatic disease in the abdomen and pelvis otherwise.3. Diffuse mild bladder wall thickening given for inadequate disten tion.RECOMMENDATIONS: None.--Read by: Will PlummerDictated Date/time: 05/30/19 12:04Electronically Signed by: Will Plummer 05/30/2011:14FINAL REPORTUT PhysiciansCT Chest w contrast [id number] 11:45:00EXAM: CT CHEST WITH CONTRASTDATE: 03/04/2019 11:14 CSTINDICATION: 59-year-old man with pancreatic cancerTECHNIQUE: Volumetric CT acquisition of the chest, following intravenouscontrast. Axial, sagittal and coronal reconstructions. MIP images wereperformed.IV Contrast: 100 mL of Omnipaque 350.DLP: 1733 mGy-cmCOMPARISON: CT chest from 10/09/2016FINDINGS: Lower Neck: The visible portions or the lower neckand thyroid areunremarkable.Heart, mediastinum and great Vessels: Right Port-A-Cath in the SVC. Heart sizeis normal and there is no pericardial effusion. Measurements the pulmonarytrunk and thoracic aorta within normal limits. Aortic root, thoracic aortic andthree- vessel coronary artery calcifications. No intrathoracic lymphadenopathyby pathologic CT size criteria.Trachea, Lungs and Pleura: Trachea and central bronchi are patent. Nopathologic pulmonary nodules or acute airspace disease. Calcified granulomaright middle lobe. Right middle lobe and lingular subsegmental atelectasis. Nopleural effusionor pneumothorax.Bones and Soft Tissues: Mild thoracic spine spondylosis. No aggressive skeletallesions.Upper abdomen: Please refer to CT abdomen from the same day for dedicatedinfradiaphragmatic findings.IMPRESSION:1. No definite CT evidence of intrathoracic metastatic disease.2. Aortic root, thoracicaortic and three-vessel coronary arterycalcifications.3. Please refer to CT abdomen from the same day for dedicatedinfradiaphragmatic findings.--Read by: José Manuel Solomonictated Date/time: 03/04/19 12:56Electronically Signed by: José Manuel Vigil 03/04/2012:47FINAL REPORTUT PhysiciansCT Abdomen/Pelvis w contrast [id number] 11:45:00EXAM: CT ABDOMEN AND PELVIS WITH CONTRASTDATE: 03/04/2019 11:14 CSTINDICATION: - C25.2 Malignant neoplasm of tail of pancreasADDITIONAL INFORMATION: History of bladder cancer.. Status post distalpancreatectomy and splenectomy 2018.COMPARISON: 11/10/2018 and 10/14/2018.TECHNIQUE: Volumetric CT acquisition of the abdomen and pelvis after theintravenous administration contrast. Axial, coronal and sagitt alreconstructions.Postcontrast phases: VenousIV contrast: 100 mL Omnipaque 350Enteric contrast: 4 50mL VolumenDLP: 1733.63 mGy-cm including chestFINDINGS: Lines, tubes [...] hemangioma or arterial portal shunt. No other focalliverlesion is seen.Biliary tree: No biliary dilatation is seen.Gallbladder: Normal. No CT evidence of gallstones.Pancreas: Patient status post a distal pancreatectomy. The previously seenfluid collection at the surgical site is resolved. There is linear densitiesseen surrounding sutures or calcifications but no definite soft tissue nodule.Linear densities demonstrates some tethering towards the stomach.Spleen: Surgically absent. The previously seen fluid collection within thesplenectomy bed is resolved.Some ill-defined fluid or soft tissue stranding isseen [...] hepatis as well as the midabdominal mesentery.Vasculature: Normal.Bones:No acute abnormality. Unchanged sclerosis of the femoral [...] 15:22Electronically Signed by: Jossy Fajardo MD 03/07/2022:32FINAL REPORTUT PhysiciansCT Abdomen/Pelvis w/wo contrast [id number] 10:50:00Study: Abdomen/Pelvis w/wo IV contrast CTClinical Indication: - bladder cancerComparison: CT of the abdomen and pelvis from 10/09/2016TECHNIQUE: Multiple axial CT images of the abdomen and pelvis were a cquiredbefore and after the administration of intravenous contrast. Sagittal andcoronal reformatted images were performed.CT Radiation Dose DLP 1842.22 mGy- cmFINDINGS: Limited views of the lung bases show [...] thepancreatic tail. This is new since prior examfrom 10/09/2016. No splenic veinthrombosis is seen. No splenic arterial aneurysm is noted. There is nopancreatic ductal dilatation. No intrahepatic or extrahepatic biliary ductdilatation is seen. Multiple colonic diverticula are seen without inflammatory change to suggestacute diverticulitis. Appendixis unremarkable. No free air, free fluid, orpathologic [...] tail. This is highly suspicious for malignancy.SL: [id number]--Abnb by: Willie Sears MDDictated Date/time: 04/09/18 13:38Electronically Signed by: Willie Sears MD 04/09/1912:47FINAL REPORTUT Physicians[Q] CYTOLOGY, [id number] 11:00:00 Test Item Value Reference Range Interpretation Comments CLINICAL INFORMATION See Comment N Bladder cancer (test code = CLINICAL INFORMATION) SCREENER (test code = See Comment N PMT, C T(ASCP)CT SCREENER) screening locat ion: [facility] [address] [place] [address] 2 PATHOLOGIST (test code See Comment N Red Conte, = PATHOLOGIST) ,Board Cert ified in Anatomic [id number] [phone] (electr onic signature) [facility][Q] NON-BIT TAPPER, SPECIMEN [id number] 11:00:00 Test Item Value Reference Range Interpretation Comments Source (test code = See Comment N Urine Source) Gross Description See Comment 50 ml of c lear yellow (test code = Gross fluid, 1 ThinPrep. Description) Verified as to patient ID/name Gross e xam(s) performed at: [facility] [place] [id number] [phone] Laboratory Dire ctor: PATRICIA ROBERT MD A [...] INCOR RECT, PLEASE CONTACT CLIENT SERVICES.PHONE NUMBER: [phone] [facility]
--- NOTE | 2022-02-23 11:57 | RAD REPORT ---
EXAM DESCRIPTION: CT - CTHCSPWOC - 02/23/2022 11:48 am CLINICAL HISTORY: Trauma, head and neck injury. head injury COMPARISON: Extremity Venous Uni Ltd dated 11/06/2016; Abdomen Pelvis W Contrast dated 08/03/2021 TECHNIQUE: Axial 5 mm thick images of the head were obtained. Axial 2 mm thick images of the cervical spine were obtained with sagittal and coronal reconstruction images generated and reviewed. All CT scans are performed using dose optimization technique as appropriate and may include automated exposure control or mA/KV adjustment according to patient size. FINDINGS: CT HEAD WITHOUT CONTRAST: No acute hemorrhage, hydrocephalus or extra-axial collection is identified.Mild brain atrophy.No area s of brain edema or midline shift. The paranasal sinuses and mastoids are clear.The calvarium is intact. CT CERVICAL SPINE WITHOUT CONTRAST: No fracture or subluxation.Mild lower cervical spondylosis.No prevertebral soft tissues swelling is i dentified. Mild carotid atherosclerosis. 3-4 cm opacity is present in the right upper lobe posteriorly. IMPRESSION: No acute intracranial or cervical spine findings. 3-4 cm opacity in the posterior right upper lobe.
[2022-02-23] MEDS ORDERED: DERMABOND SKIN ADHESIVE TOP ONE (13:10)
--- NOTE | 2022-02-23 13:14 | ER ---
Nurse's Notes [facility] Name: Austen Patterson Age: 61 yrs Sex: Male : 1960 Arrival Date: 02/23/2022 Time: 10:59 Bed 5 Private MD: Kaiden Dean Diagnosis: Unspecified injury of head, initial encounter;Facial Laceration Presentation: 02/23 11:05 Chief complaint: Tripped over table and landed on right side, hit head on hardwood floor. Unknown LOC. Abrasion and swelling noted to right side of head, skin tears to right wrist. Coronavirus screen: At this time, the client does not indicate any symptoms associated with coronavirus-19. Ebola Screen: No symptoms or risks identified at this time. Initial Sepsis Screen: Does the patient meet any 2 criteria? No. Patient's initial sepsis screen is negative. Does the patient have a suspected source of infection? No. Patient's initial sepsis screen is negative. Risk Assessment: Do you want to hurt yourself or someone else? Patient reports no desire to harm self or others. Onset of symptoms was February 23, 2022. 11:05 Method Of Arrival: Wheelchair hb 11:05 Acuity: JAREK 3 hb Historical: - Allergies: 11:07 No Known Allergies; hb - PMHx: 11:07 Diabetes - NIDDM; Hypertension; Lung Cancer; pancriatic cancer; Tramatic Brain Injury; hb - PSHx: 11:07 pancriatic surgery; hb - Immunization history:: Adult Immunizations unknown. - Social history:: Smoking status: unknown. Screenin:20 [facility] ED Fall Risk Assessment (Adult) History of falling in the last 3 months, jl7 including since admission Yes- fall prone (multiple falls) (3 pts) Confusion or Disorientation No (0 pts) Intoxicated or Sedated No (0 pts) Impaired Gait No (0 pts) Mobility Assist Device Used No (0 pt) Altered Elimination No (0 pt) Score/Fall Risk Level 3 or more points = High Risk Oriented to surroundings, Maintained a safe environment, Educated pt \T\ family on fall prevention, incl call for assistance when getting out of bed. Abuse screen: Denies threats or abuse. Denies injuries from another. Nutritional screening: No deficits noted. Tuberculosis screening: No symptoms or risk factors identified. Assessment: 11:20 General: Appears in no apparent distress. uncomfortable, Behavior is calm, cooperative, jl7 appropriate for age. Pain: Denies pain. Neuro: Level of Consciousness is awake, alert, obeys commands, Oriented to person, place, time, situation. Cardiovascular: Patient's skin is warm and dry. Respiratory: Airway is patent Respiratory effort is even, unlabored, Respiratory pattern is regular, symmetrical. Derm: Skin is pink, warm \T\ dry. Musculoskeletal: Swelling present in right eye and right adventist. Injury Description: Injury Description: Laceration sustained to right supraorbital ridge. 12:00 Reassessment: Report received from TAE Gillespie. mb9 12:42 General: Appears in no apparent distress. comfortable, Behavior is calm, cooperative, mb9 appropriate for age. Pain: Complains of pain in face Pain currently is 3 out of 10 on a pain scale. Neuro: Level of Consciousness is awake, alert, obeys commands, Oriented to person, place, time, situation. Cardiovascular: Heart tones S1 S2 present Rhythm is regular. Respiratory: Airway is patent Respiratory effort is even, unlabored, Respiratory pattern is regular, symmetrical, Breath sounds are clear bilaterally. GI: Abdomen is flat, non-distended. : No signs and/or symptoms were reported regarding the genitourinary system. EENT: Eyes swelling present in right eye and right adventist. Derm: Skin is pink, warm \T\ dry. swelling present in right eye and right adventist. Abrasion noted on right eyelid. No active bleeding noted. Musculoskeletal: Range of motion: intact in all extremities. 13:14 Reassessment: No changes from previously documented assessment. Neuro: Level of mb9 Consciousness is awake, alert, obeys commands. Respiratory: Airway is patent. Derm: Skin is pink, warm \T\ dry. Vital Signs: 11:05 BP 143 / 68; Pulse 63; Resp 16; Temp 97.9; Pulse Ox 100% on R/A; Weight 77.11 kg; hb Height 5 ft. 11 in. (180.34 cm); Pain 2/10; 12:44 BP 131 / 99; Pulse 65; Resp 14; Pulse Ox 100% on R/A; mb9 11:05 Body Mass Index 23.71 (77.11 kg, 180.34 cm) hb ED Course: 10:59 Patient arrived in ED. as 10:59 Kaiden Dean MD is Private Physician. as 11:07 Triage completed. 11:08 Florencio Landis PA is PHCP. [facility] 11:08 Trey Odonnell MD is Attending Physician. [facility] 11:14 Jose Miguel Ray, RN is Primary Nurse. jl7 11:20 Patient has correct armband on for positive identification. Bed in low position. Call jl7 light in reach. Side rails up X 1. Pulse ox on. NIBP on. 11:49 CT Head C Spine In Process Unspecified. EDMS 12:32 Primary Nurse role handed off by Jose Miguel Ray, TAE leonard 12:36 Aixa Toro, RN is Primary Nurse. mb9 13:11 Assist provider with laceration repair on right eye and right supraorbital ridge that mb9 was 2.5 cm. or less using Dermabond. Set up tray. Performed by Florencio QUIROGA Patient tolerated well. 13:12 Kaiden Dean MD is Referral Physician. [facility] 13:12 Patient did not have IV access during this emergency room visit. mb9 Administered Medications: No medications were administered Medication: 13:12 VIS not applicable for this client. mb9 Outcome: 13:13 Discharge ordered by . [facility] 13:30 Discharged to home via wheelchair. mb9 13:30 Condition: stable 13:30 Discharge instructions given to patient, Instructed on discharge instructions, follow up and referral plans. Demonstrated understanding of instructions, follow-up care. 13:48 Patient left the ED. mb9 Signatures: Dispatcher [employer] EDND Florencio Landis PA PA jmm Martinez, Amelia as Baxter, Heather, RN RN Jose Miguel Ray, RN TAE jl7 Aixa Toro, TAE RN mb9
--- NOTE | 2022-02-23 13:14 | EDPHYS ---
Physician Documentation [facility] Name: Austen Patterson Age: 61 yrs Sex: Male : 1960 Arrival Date: 02/23/2022 Time: 10:59 Bed 5 Private MD: Kaiden Dean ED Physician Trey Odonnell HPI: 02/23 12:39 This 61 yrs old Male presents to ER via Wheelchair with complaints of Fall Injury. jmm 12:39 Details of fall: The patient fell from an upright position. Onset: The symptoms/episode jmm began/occurred acutely, just prior to arrival. Associated injuries: The patient sustained injury to the head. It is unknown whether or not the patient has had similar symptoms in the past. This is a 61 year old male with a history of dm, htn, lung cancer, pancreatic cancer that presents to the ED with a head injury after tripping earlier today Denies chest pain, sob. . Historical: - Allergies: 11:07 No Known Allergies; hb - PMHx: 11:07 Diabetes - NIDDM; Hypertension; Lung Cancer; pancriatic cancer; Tramatic Brain Injury; hb - PSHx: 11:07 pancriatic surgery; hb - Immunization history:: Adult Immunizations unknown. - Social history:: Smoking status: unknown. ROS: 12:39 Constitutional: Negative for fever, chills, and weight loss, Cardiovascular: Negative jmm for chest pain, palpitations, and edema, Respiratory: Negative for shortness of breath, cough, wheezing, and pleuritic chest pain. 12:39 Neuro: Negative for altered mental status, loss of consciousness. 12:39 All other systems are negative. Exam: 12:39 Constitutional: This is a well developed, well nourished patient who is awake, alert, jmm and in no acute distress. 12:39 ENT: Moist Mucus Membranes Neck: Trachea midline, Supple Chest/axilla: Normal chest wall appearance and motion. Cardiovascular: Regular rate and rhythm. No edema appreciated Respiratory: Normal respirations, no respiratory distress appreciated Abdomen/GI: Non distended Back: Normal ROM Skin: General appearance color normal MS/ Extremity: Moves all extremities, no obvious deformities appreciated, no edema noted to the lower extremities Neuro: Awake and alert Psych: Behavior is normal, Mood is normal, Patient is cooperative and pleasant 12:39 Head/face: Noted is swelling, that is moderate, of the right eye. Vital Signs: 11:05 BP 143 / 68; Pulse 63; Resp 16; Temp 97.9; Pulse Ox 100% on R/A; Weight 77.11 kg; hb Height 5 ft. 11 in. (180.34 cm); Pain 2/10; 12:44 BP 131 / 99; Pulse 65; Resp 14; Pulse Ox 100% on R/A; mb9 11:05 Body Mass Index 23.71 (77.11 kg, 180.34 cm) hb MDM: 11:26 Patient medically screened. [facility] 13:12 Data reviewed: vital signs, nurses notes. Counseling: I had a detailed discussion with [facility] the patient and/or guardian regarding: the historical points, exam findings, and any diagnostic results supporting the discharge/admit diagnosis, radiology results, the need for outpatient follow up, to return to the emergency department if symptoms worsen or persist or if there are any questions or concerns that arise at home. 02/23 11:28 Order name: CT Head C Spine; Complete Time: 12:01 [facility] 02/23 13:04 Order name: Dermabond; Complete Time: 13:08 [facility] Administered Medications: No medications were administered Disposition: 15:11 Co-signature as Attending Physician, Trey Odonnell MD. rn Disposition Summary: 02/23/22 13:13 Discharge Ordered Location: Home [facility] Condition: Stable [facility] Diagnosis - Unspecified injury of head, initial encounter [facility] - Facial Laceration [facility] Followup: [facility] - With: Kaiden Dean MD - When: 2 - 3 days - Reason: Recheck today's complaints, Continuance of care, Re-evaluation by your physician Discharge Instructions: - Discharge Summary Sheet [facility] - Head Injury, Adult jm - Facial Laceration [facility] Forms: - Medication Reconciliation Form [facility] - Thank You Letter [facility] - Antibiotic Education [facility] - Prescription Opioid Use [facility] Signatures: Dispatcher [employer] EDFlorencio Mitchell PA PA jmm Nieto, Roman, MD MD rn Baxter, Heather, RN RN hb Leal, Jahala, RN RN jl7
[2022-02-23 13:53] VITALS: TEMP 97.9; O2SAT 100
[2022-02-23 13:54] VITALS: BP 131/99
== END 2022-02-23 13:48 | disposition home or self-care (01) ==
LOC: ER 10:58
PROC: 0HQ1XZZ Repair Face Skin, External Approach (ICD-10-PCS; principal; 2022-02-23)
DX: S01.81XA Laceration without foreign body of other part of head, initial encounter (principal); I10 Essential (primary) hypertension; Z87.820 Personal history of traumatic brain injury
CPT/HCPCS: 70450; 72125; 99283